=== PATIENT | male | born 1960 | race African-American/Black ===

== ENCOUNTER 2021-01-29 17:52 | Inpatient (IN) | payer OTHER ==
[2021-01-29 18:52] LABS: Absolute Lymphocytes (CBC) 1.9 K/uL (0.7-4.9); Basophils % 0.9 % (0-1.3); Lymphocytes % 33.2 % (15.3-44.8); MPV 8.2 fL (7.6-11.3); RBC Red Blood Cell Count 4.23 M/uL (4.33-5.43)
[2021-01-29 18:55] LABS: Protime INR 1.03
--- NOTE | 2021-01-29 18:58 | ER ---
Nurse's Notes [facility] Name: Weston Saba Age: 60 yrs Sex: Male : 1960 Arrival Date: 01/29/2021 Time: 17:54 Bed 4 Private MD: Diagnosis: Essential (primary) hypertension;Systolic (congestive) heart failure;Edema, unspecified;Type 2 diabetes mellitus with hyperglycemia;Obesity due to excess calories Presentation: 01/29 18:21 Chief complaint: Patient states: "I am swollen up everywhere, last week I was 245lbs ld1 and today I am 260lbs." Pt reports facial swelling, he pressed his leg today and it left an indention. Pt reports having heart failure. Coronavirus screen: At this time, the client does not indicate any symptoms associated with coronavirus-19. Ebola Screen: No symptoms or risks identified at this time. Initial Sepsis Screen: Does the patient meet any 2 criteria? No. Patient's initial sepsis screen is negative. Does the patient have a suspected source of infection? No. Patient's initial sepsis screen is negative. Risk Assessment: Do you want to hurt yourself or someone else? Patient reports no desire to harm self or others. Onset of symptoms was January 29, 2021. 18:21 Method Of Arrival: Ambulatory ld1 18:21 Acuity: DANIELA 3 ld1 20:28 Note 1+ edema noted BLE. Exp wheeze noted. Notified provider. Orders received. as6 Triage Assessment: 18:23 General: Appears in no apparent distress. comfortable, Behavior is calm, cooperative, ld1 appropriate for age. Pain: Denies pain. Neuro: Level of Consciousness is awake, alert, obeys commands, Oriented to person, place, time, situation. Cardiovascular: Capillary refill < 3 seconds Patient's skin is warm and dry. Respiratory: Airway is patent Respiratory effort is even, unlabored, Respiratory pattern is regular, symmetrical. GI: Abdomen is round non-distended. : No signs and/or symptoms were reported regarding the genitourinary system. Derm:. 18:23 Musculoskeletal: Swelling present in right arm, left arm, right leg and left leg. ld1 Historical: - Allergies: 18:23 No Known Allergies; ld1 - Home Meds: 18:23 omeprazole 40 mg Oral cpDR 1 cap once daily [Active]; gabapentin 300 mg oral cap 1 cap ld1 BID [Active]; furosemide 20 mg Oral tab 1 tab once daily [Active]; metformin 500 mg Oral tab 1 tab every morning [Active]; Lipitor 40 mg Oral tab 1 tab once daily [Active]; levothyroxine 50 mcg cap 1 cap once daily [Active]; budesonide 3 mg oral CECX [Active]; albuterol sulfate 2 mg/5 mL Oral syrp [Active]; 20:16 budesonide-formoterol 160-4.5 2 puff BID [Active]; stiolto respimat 2.5 2 puffs nasal as6 daily [Active]; trelegy 200-62.5-25 1 puff daily [Active]; - PMHx: 18:23 Hypertensive disorder; Hypercholesterolemia; Hyperthyroidism; Diabetes mellitus; ld1 Chronic systolic heart failure; - Immunization history:: Adult Immunizations up to date, Client reports receiving the 1st dose of the Covid vaccine. - Social history:: Smoking status: Patient reports the use of cigarette tobacco products, smokes one-half pack cigarettes per day, Patient/guardian denies using alcohol. - Family history:: not pertinent. Screenin:09 Abuse screen: Denies threats or abuse. Nutritional screening: No deficits noted. df1 Tuberculosis screening: No symptoms or risk factors identified. Fall Risk None identified. Assessment: 20:27 General: Appears in no apparent distress. Behavior is calm, cooperative. Pain: Denies as6 pain. Neuro: No deficits noted. Cardiovascular: No deficits noted. Respiratory: Airway is patent Trachea midline Respiratory effort is even, unlabored, Respiratory pattern is regular, symmetrical, Breath sounds with wheezes bilaterally. GI: No deficits noted. : No deficits noted. EENT: No deficits noted. Musculoskeletal: No deficits noted. Vital Signs: 18:21 BP 125 / 85; Pulse 70; Resp 18; Temp 97.9(O); Pulse Ox 97% on R/A; Weight 117.93 kg; ld1 Height 5 ft. 6 in. (167.64 cm); Pain 5/10; 20:20 BP 120 / 77; Pulse 70; Resp 18; Pulse Ox 97% on R/A; Pain 0/10; as6 18:21 Body Mass Index 41.96 (117.93 kg, 167.64 cm) 1 ED Course: 17:54 Patient arrived in ED. as 18:23 Triage completed. ld1 18:23 Arm band placed on right wrist. ld1 18:41 Leonides Huber MD is Attending Physician. teresita 18:42 Initial lab(s) drawn, by ED staff, sent to lab. Inserted saline lock: 20 gauge in left kj1 antecubital area, using aseptic technique. Blood collected. 18:55 XRAY Chest (1 view) In Process Unspecified. EDMS 18:56 Roman Harrison is Hospitalizing Provider. teresita 19:06 Tomeka Saba, MIRA is Primary Nurse. bs2 19:59 COVID-19 SARS RT PCR (Document "Date of Onset" if Symptomatic) Sent. as6 20:03 US Extremity Venous W Compression Adonis In Process Unspecified. EDMS 20:03 Abdomen Exam Limited In Process Unspecified. EDMS 20:13 Basic Metabolic Panel Sent. as6 20:14 CBC with Diff Sent. as6 20:14 LFT's Sent. as6 20:28 No provider procedures requiring assistance completed. as6 21:09 Patient has correct armband on for positive identification. Placed in gown. Bed in low df1 position. Call light in reach. Side rails up X 1. 21:09 Patient admitted, IV remains in place. df1 Administered Medications: 18:51 CANCELLED (Duplicate Order): Lasix (furosemide) 20 mg IVP once; give over 2 minutes teresita 20:13 Drug: Lasix (furosemide) 40 mg Route: IVP; Site: left antecubital; as6 20:35 Drug: Albuterol - atroVENT (ipratropium) (3:1) (2.5 mg - 0.5 mg) 3 ml Route: Nebulizer; as6 Outcome: 18:57 Decision to Hospitalize by Provider. teresita 21:09 Admitted to Tele accompanied by tech. df1 21:09 Condition: stable 21:09 Instructed on the need for admit. 21:20 Patient left the ED. em Signatures: Dispatcher [employer] Leonides Mendez MD MD cha Munoz, Edgar, MIRA RN em Annette Posadas as Danelle Castano kj1 China Sanchez RN RN ld1 Tomeka Saba, MIRA RN bs2 Aracelis Grey df1 [place], [place], RN RN as6 Corrections: (The following items were deleted from the chart) 18:30 18:21 Pulse 70bpm; Resp 18bpm; Pulse Ox 97% RA; Temp 97.9F Oral; 117.93 kg; Height 5 ld1 ft. 6 in.; BMI: 41.9; Pain 5/10; ld1
--- NOTE | 2021-01-29 18:58 | EDPHYS ---
Physician Documentation [facility] Name: Weston Saba Age: 60 yrs Sex: Male : 1960 Arrival Date: 01/29/2021 Time: 17:54 Bed 4 Private MD: Leonides Stokes HPI: 01/29 18:51 This 60 yrs old Black Male presents to ER via Ambulatory with complaints of Edema. teresita 18:51 The patient presents with decreased range of motion, pain, swelling. The complaints teresita affect the right leg and left leg. Context: The problem was sustained at home. Onset: The symptoms/episode began/occurred 3 day(s) ago. Modifying factors: The symptoms are alleviated by nothing. Associated signs and symptoms: The patient has no apparent associated signs or symptoms. The patient has shortness of breath with light activity, that woke him/her from sleep. The patient's shortness of breath is aggravated by supine position, is alleviated by elevating head, application of supplemental oxygen. Historical: - Allergies: 18:23 No Known Allergies; ld1 - Home Meds: 18:23 omeprazole 40 mg Oral cpDR 1 cap once daily [Active]; gabapentin 300 mg oral cap 1 cap ld1 BID [Active]; furosemide 20 mg Oral tab 1 tab once daily [Active]; metformin 500 mg Oral tab 1 tab every morning [Active]; Lipitor 40 mg Oral tab 1 tab once daily [Active]; levothyroxine 50 mcg cap 1 cap once daily [Active]; budesonide 3 mg oral CECX [Active]; albuterol sulfate 2 mg/5 mL Oral syrp [Active]; 20:16 budesonide-formoterol 160-4.5 2 puff BID [Active]; stiolto respimat 2.5 2 puffs nasal as6 daily [Active]; trelegy 200-62.5-25 1 puff daily [Active]; - PMHx: 18:23 Hypertensive disorder; Hypercholesterolemia; Hyperthyroidism; Diabetes mellitus; ld1 Chronic systolic heart failure; - Immunization history:: Adult Immunizations up to date, Client reports receiving the 1st dose of the Covid vaccine. - Social history:: Smoking status: Patient reports the use of cigarette tobacco products, smokes one-half pack cigarettes per day, Patient/guardian denies using alcohol. - Family history:: not pertinent. ROS: 18:51 Constitutional: Negative for fever, chills, and weight loss, Eyes: Negative for injury, teresita pain, redness, and discharge, ENT: Negative for injury, pain, and discharge, Neck: Negative for injury, pain, and swelling, Cardiovascular: Negative for chest pain, palpitations, and edema, Abdomen/GI: Negative for abdominal pain, nausea, vomiting, diarrhea, and constipation, : Negative for injury, bleeding, discharge, and swelling, Skin: Negative for injury, rash, and discoloration, Neuro: Negative for headache, weakness, numbness, tingling, and seizure. 18:51 Neck: 18:51 MS/extremity: Positive for swelling. Exam: 18:53 Constitutional: This is a well developed, well nourished patient who is awake, alert, teresita and in no acute distress. Head/Face: Normocephalic, atraumatic. Eyes: Pupils equal round and reactive to light, extra-ocular motions intact. Lids and lashes normal. Conjunctiva and sclera are non-icteric and not injected. Cornea within normal limits. Periorbital areas with no swelling, redness, or edema. ENT: Nares patent. No nasal discharge, no septal abnormalities noted. Tympanic membranes are normal and external auditory canals are clear. Oropharynx with no redness, swelling, or masses, exudates, or evidence of obstruction, uvula midline. Mucous membranes moist. Chest/axilla: Normal chest wall appearance and motion. Nontender with no deformity. No lesions are appreciated. Respiratory: Lungs have equal breath sounds bilaterally, clear to auscultation and percussion. No rales, rhonchi or wheezes noted. No increased work of breathing, no retractions or nasal flaring. Abdomen/GI: Soft, non-tender, with normal bowel sounds. No distension or tympany. No guarding or rebound. No evidence of tenderness throughout. Back: No spinal tenderness. No costovertebral tenderness. Full range of motion. Male : Normal genitalia with no discharge or lesions. Skin: Warm, dry with normal turgor. Normal color with no rashes, no lesions, and no evidence of cellulitis. Neuro: Awake and alert, GCS 15, oriented to person, place, time, and situation. Cranial nerves II-XII grossly intact. Motor strength 5/5 in all extremities. Sensory grossly intact. Cerebellar exam normal. Normal gait. Psych: Awake, alert, with orientation to person, place and time. Behavior, mood, and affect are within normal limits. 18:53 Neck: External neck: no acute changes, ROM/movement: is normal, no acute changes. 18:53 Chest/axilla: Inspection: normal, no acute changes, Axilla: are normal, no acute changes, Lymph nodes: lymphadenopathy is not appreciated. 18:53 Cardiovascular: Rate: normal, Rhythm: regular, Pulses: Pulses are 4+ in bilateral radial, brachial, femoral, popliteal, posterior tibial and and dorsalis pedis arteries.. Heart sounds: normal, Edema: 2+ edema to level of left midcalf and right midcalf, JVD: is noted bilaterally, to 3 cm. 19:36 ECG was reviewed by the Attending Physician. [facility] Vital Signs: 18:21 BP 125 / 85; Pulse 70; Resp 18; Temp 97.9(O); Pulse Ox 97% on R/A; Weight 117.93 kg; ld1 Height 5 ft. 6 in. (167.64 cm); Pain 5/10; 20:20 BP 120 / 77; Pulse 70; Resp 18; Pulse Ox 97% on R/A; Pain 0/10; as6 18:21 Body Mass Index 41.96 (117.93 kg, 167.64 cm) ld1 MDM: 18:41 Patient medically screened. teresita 18:55 Differential diagnosis: CHF exacerbation, pulmonary edema. Antibiotic administration: teresita Not indicated. The patient's Wells Deep Vein Thrombosis Score was calculated as follows: Total Score: 0-2 Pts- Low Risk. The patient's pulmonary embolism risk score was calculated as follows: Total Score: 0-2 points. This patient was found to be at low risk for a pulmonary embolism by using the Well's assessment criteria. Immunization status: Influenza vaccine:. Data reviewed: vital signs, nurses notes, lab test result(s), EKG, radiologic studies, plain films. Data interpreted: secondary social studies teacher: rate is 70 beats/min, rhythm is regular, Pulse oximetry: on room air is 97 %. Test interpretation: by ED physician or midlevel provider: ECG, plain radiologic studies. 01/29 18: Order name: Basic Metabolic Panel kb 01/29 18:29 Order name: CBC with Diff kb 01/29 18:29 Order name: LFT's kb 01/29 18:29 Order name: Magnesium; Complete Time: 19:18 kb 01/29 18:29 Order name: NT PRO-BNP; Complete Time: 19:18 kb 01/29 18:29 Order name: PT-INR; Complete Time: 19:18 kb 01/29 18:29 Order name: Troponin (emerg Dept Use Only); Complete Time: 19:18 kb 01/29 18:29 Order name: XRAY Chest (1 view); Complete Time: 19:37 kb 01/29 18:30 Order name: Basic Metabolic Panel; Complete Time: 19:18 EDMS 01/29 18:30 Order name: CBC with Automated Diff; Complete Time: 19:18 EDMS 01/29 18:30 Order name: Liver (Hepatic) Function; Complete Time: 19:18 EDMS 01/29 18:56 Order name: US Extremity Venous W Compression Adonis teresita 01/29 19:08 Order name: COVID-19 SARS RT PCR (Document "Date of Onset" if Symptomatic) bs2 01/29 18:29 Order name: EKG; Complete Time: 18:30 kb 01/29 18:29 Order name: Cardiac monitoring; Complete Time: 18:39 kb 01/29 18:29 Order name: EKG - Nurse/Tech; Complete Time: 18:39 kb 01/29 18:29 Order name: IV Saline Lock; Complete Time: 18:51 kb 01/29 18:29 Order name: Labs collected and sent; Complete Time: 18:51 kb 01/29 18:29 Order name: O2 Per Protocol; Complete Time: 18:39 kb 01/29 18:29 Order name: O2 Sat Monitoring; Complete Time: 18:39 kb 01/29 20:01 Order name: Abdomen Exam Limited EDMS EC:36 Rate is 69 beats/min. Rhythm is regular. QRS Buckner is Normal. ID interval is normal. QRS teresita interval is normal. QT interval is normal. No Q waves. T waves are Normal. No ST changes noted. Clinical impression: NSR w/ Non-specific ST/T Changes and No evidence of ischemia. Interpreted by me. Reviewed by me. Administered Medications: 18:51 CANCELLED (Duplicate Order): Lasix (furosemide) 20 mg IVP once; give over 2 minutes teresita 20:13 Drug: Lasix (furosemide) 40 mg Route: IVP; Site: left antecubital; as6 20:35 Drug: Albuterol - atroVENT (ipratropium) (3:1) (2.5 mg - 0.5 mg) 3 ml Route: Nebulizer; as6 Disposition Summary: 01/29/21 18:57 Hospitalization Ordered Hospitalization Status: Observation teresita Provider: Roman Harrison cha Location: Telemetry/MedSurg (observation) teresita Condition: Fair teresita Problem: an acute exacerbation teresita Symptoms: have improved teresita Bed/Room Type: Standard teresita Room Assignment: 206(01/29/21 20:45) cg Diagnosis - Essential (primary) hypertension teresita - Systolic (congestive) heart failure teresita - Edema, unspecified teresita - Type 2 diabetes mellitus with hyperglycemia teresita - Obesity due to excess calories teresita Forms: - Medication Reconciliation Form teresita - SBAR form teresita Signatures: Dispatcher [employer] EDSharmila Magaña FNP-C FNP-Leonides Patten MD MD cha Garcia, Cindy, RN RN China Sanchez RN RN ld1 Addison Schumacher RN RN as6 Corrections: (The following items were deleted from the chart) 18:51 18:43 Lasix (furosemide) 20 mg IVP once; give over 2 minutes ordered. [facility] 20:01 18:57 Rp Exam Complete+US.RAD.BRZ ordered. EDND EDMS 20:45 18:57 [facility]
[2021-01-29 19:11] LABS: ALT/SGPT 152 U/L (12-78); AST/SGOT 275 U/L (15-37); Albumin 3.6 g/dL (3.4-5.0); Alkaline Phosphatase 79 U/L (45-117); BUN Blood Urea Nitrogen 13 mg/dL (7-18); Bicarbonate 28 mmol/L (21-32); Bilirubin Direct < 0.1 mg/dL (0-0.2); Bilirubin Total 0.3 mg/dL (0.2-1.0); Glucose Level 126 mg/dL (74-106); Magnesium 2.3 mg/dL (1.8-2.4); NT PRO-BNP 53 pg/mL (<125); Potassium 3.6 mmol/L (3.5-5.1); Protein, Total 7.6 g/dL (6.4-8.2); Sodium Level 141 mmol/L (136-145); Troponin (Emerg Dept Use Only) 0.02 ng/mL (0.0-0.045)
--- NOTE | 2021-01-29 19:23 | RAD REPORT ---
EXAM DESCRIPTION: RAD - Chest Single View - 01/29/2021 6:55 pm CLINICAL HISTORY: SWELLING Chest pain. COMPARISON: No comparisons FINDINGS: Portable technique limits examination quality. The lungs are grossly clear. The heart is normal in size. No displaced fractures. IMPRESSION: No acute intrathoracic process suspected.
[2021-01-29] MEDS ORDERED: FUROSEMIDE 40 MG/4 ML VIAL ONE (20:00)
--- NOTE | 2021-01-29 20:17 | RAD REPORT ---
EXAM DESCRIPTION: US - Abdomen Exam Limited - 01/29/2021 8:03 pm CLINICAL HISTORY: edema Abdominal pain COMPARISON: No comparisons FINDINGS: Liver and renal limited assessment was requested. Mild diffuse fatty liver is noted. Liver size is mildly prominent. Kidneys are within normal limits w ithout evidence of hydronephrosis.
--- NOTE | 2021-01-29 20:18 | RAD REPORT ---
EXAM DESCRIPTION: US - Extrem Venous W Compress Adonis - 01/29/2021 8:03 pm CLINICAL HISTORY: Pain;Swelling Bilateral leg edema and swelling. COMPARISON: No comparisons TECHNIQUE: Real-time sonographic interrogation of the left and right lower extremity deep venous sys tems was performed. FINDINGS: Normal compressibility, flow augmentation, phasic flow and spontaneous flow is identified in both the left and right lower extremity deep venous systems. IMPRESSION: No sonographic evidence of left or right lower extremity deep venous thrombosis.
[2021-01-29] MEDS ORDERED: IPRATROPIUM BROM 0.5MG/2.5ML ONE (20:31)
[2021-01-29] MEDS ORDERED: ALBUTEROL 2.5 MG/3 ML NEB SOL ONE (20:31)
--- NOTE | 2021-01-29 20:37 | P.HP ---
Certification for Inpatient Patient admitted to: Inpatient With expected LOS: <2 Midnights Patient will require the following post-hospital care: None Practitioner: I am a practitioner with admitting privileges, knowledge of patient current condition, hospital course, and medical plan of care. Services: Services provided to patient in accordance with Admission requirements found in Title 42 Section 412.3 of the Code of Federal Regulations Patient History Date of Service: 01/29/21 Reason for admission: edema History of Present Illness: Mr. Saba is a 60 yo M with CHF, HTN, HLD, hypothyroidism, COPD, prediabetes who presents with two days of increased dyspnea and edema. He says he has gained 20lbs over the past few days and that he has noticed swelling in his face, legs, and abdomen. He also reports back aches and tingling in his legs. He reports wheezing, orthopnea, PND, headaches. He last had these symptoms 7 years ago. AST 275, ALT 152. Abdominal ultrasound showed evidence of fatty liver. Patient currently admitted to [facility] for alcohol use disorder, last drink was 2 weeks ago. He smokes 5 cigarettes daily. - Past Medical/Surgical History Has patient received pneumonia vaccine in the past: No Diabetic: Yes -: HTN -: CHF -: HLD -: hypothyroidism -: COPD -: fatty liver -: right ankle -: right bicep tendon repair - Family History Family History: Reviewed- Non-Contributory - Social History Smoking Status: Current every day smoker Alcohol use: No CD- Drugs: No Caffeine use: No Place of Residence: Home Review of Systems 10-point ROS is otherwise unremarkable General: Unremarkable Eyes: Unremarkable ENT: Unremarkable Respiratory: Shortness of Breath, SOB with Excertion, Wheezing, As per HPI Cardiovascular: Orthopnea, Paroxysmal Noc. Dyspnea, Edema, As per HPI Gastrointestinal: Unremarkable Genitourinary: Unremarkable Musculoskeletal: Back Pain, Leg Pain, As per HPI Integumentary: Unremarkable Neurological: Unremarkable Lymphatics: Unremarkable Physical Examination - Physical Exam General: Alert, In no apparent distress, Obese HEENT: Atraumatic, PERRLA, Mucous membr. moist/pink, EOMI, Sclerae nonicteric Neck: Supple, 2+ carotid pulse no bruit, No LAD, JVD distended Respiratory: Normal air movement, Crackles/rales Cardiovascular: Regular rate/rhythm, Normal S1 S2, Edema Gastrointestinal: Normal bowel sounds, No tenderness, Hepatomegaly Musculoskeletal: No tenderness Integumentary: No rashes Neurological: Normal speech, Normal strength at 5/5 x4 extr, Normal tone, Normal affect Lymphatics: No axilla or inguinal lymphadenopathy - Studies Laboratory Data (last 24 hrs) 01/29/21 18:42: PT 11.8, INR 1.03 01/29/21 18:42: WBC 5.70, Hgb 13.2 L, Hct 39.0 L, Plt Count 298 01/29/21 18:42: Sodium 141, Potassium 3.6, BUN 13, Creatinine 1.21, Glucose 126 H, Magnesium 2.3, Total Bilirubin 0.3, AST 275 H, ALT 152 H, Alkaline Phosphatase 79 Assessment and Plan - Problems (Diagnosis) (1) HTN (hypertension) Current Visit: Yes Status: Chronic Qualifiers: Hypertension type: primary hypertension Qualified Code(s): I10 - Essential (primary) hypertension (2) CHF (congestive heart failure) Current Visit: Yes Status: Acute Qualifiers: Heart failure type: unspecified Heart failure chronicity: acute on chronic Qualified Code(s): I50.9 - Heart failure, unspecified (3) NAFLD (nonalcoholic fatty liver disease) Current Visit: Yes Status: Chronic (4) HLD (hyperlipidemia) Current Visit: Yes Status: Chronic Qualifiers: Hyperlipidemia type: unspecified Qualified Code(s): E78.5 - Hyperlipidemia, unspecified (5) Hypothyroid Current Visit: Yes Status: Chronic Qualifiers: Hypothyroidism type: unspecified Qualified Code(s): E03.9 - Hypothyroidism, unspecified (6) COPD (chronic obstructive pulmonary disease) Current Visit: Yes Status: Chronic Qualifiers: COPD type: unspecified COPD Qualified Code(s): J44.9 - Chronic obstructive pulmonary disease, unspecified (7) Alcohol use disorder, mild, in early remission Current Visit: Yes Status: Chronic - Plan ECHO pending trend troponins continue IV lasix, heart healthy diet, daily weights and fluid restriction A1c pending, sliding scale insulin and accuchecks breathing treatments as needed monitor for signs of alcohol withdrawal, nicotine patch PRN monitor liver function reconcile and continue home medications DVT ppx Discharge Plan: Home Plan to discharge in: 48 Hours - Advance Directives Does patient have a Living Will: No Does patient have a Durable POA for Healthcare: No - Code Status/Comfort Care Code Status Assessed: Yes (full code ) Critical Care: No Time Spent Managing Pts Care (In Minutes): 70
[2021-01-29] MEDS ORDERED: IPRATROPIUM BROM 0.5MG/2.5ML NEB PRN (22:17)
[2021-01-29] MEDS ORDERED: ONDANSETRON 4 MG/2 ML VIAL IV PRN (22:17)
[2021-01-29] MEDS: INSULIN -REGULAR HUMAN 50 UNIT/0.5 ML ML SQ SCH (22:17)
[2021-01-29] MEDS ORDERED: ALBUTEROL 2.5 MG/3 ML NEB SOL NEB PRN (22:17)
[2021-01-29] MEDS: ATORVASTATIN 40 MG TAB PO SCH (22:38)
[2021-01-29] MEDS: GABAPENTIN 300 MG CAP PO SCH (22:38)
[2021-01-29] MEDS: ACETAMINOPHEN 500 MG TAB PO PRN (22:40)
[2021-01-29 22:59] VITALS: BMI 41.9
[2021-01-30 04:30] LABS: Absolute Lymphocytes (CBC) 1.8 K/uL (0.7-4.9); Basophils % 0.5 % (0-1.3); Hematocrit 36.4 % (39.6-49.0); Lymphocytes % 31.9 % (15.3-44.8); MPV 8.3 fL (7.6-11.3); RBC Red Blood Cell Count 3.98 M/uL (4.33-5.43)
[2021-01-30] MEDS: ACETAMINOPHEN 500 MG TAB PO PRN ×2 (04:43→20:36)
[2021-01-30 04:59] LABS: Albumin 3.4 g/dL (3.4-5.0); Bilirubin Total 0.4 mg/dL (0.2-1.0); Magnesium 2.2 mg/dL (1.8-2.4); Phosphorus 5.5 mg/dL (2.5-4.9)
[2021-01-30 05:01] LABS: Thyroid Stimulating Hormone 4.44 uIU/mL (0.360-3.740)
[2021-01-30] MEDS ORDERED: LIDOCAINE VISCOUS 2% SOLN 15 ML UDC PO PRN (05:01)
[2021-01-30] MEDS ORDERED: LIDOCAINE VISCOUS 2% SOLN 15 ML UDC PO ONE (05:08)
[2021-01-30] MEDS ORDERED: POTASSIUM CL SA 10 MEQ TAB PO ONE ×2 (05:08→14:34)
[2021-01-30 05:09] LABS: Urine Appearance CLEAR (Clear); Urine Bilirubin NEGATIVE (Negative); Urine Blood NEGATIVE (Negative); Urine Color YELLOW (Yellow); Urine Glucose NEGATIVE (Negative); Urine Protein NEGATIVE (Negative); Urine Urobilinogen 0.2 mg/dL (0.2-1.0); Urine pH 5.5 (5.0-7.0)
[2021-01-30 05:14] LABS: Urine Microscopic Reflex NO UMIC
[2021-01-30] MEDS: LEVOTHYROXINE SOD 0.05 MG TABLET PO SCH (05:31)
[2021-01-30] MEDS: PANTOPRAZOLE 40MG TABLET PO SCH (05:31)
[2021-01-30] MEDS: INSULIN -REGULAR HUMAN 50 UNIT/0.5 ML ML SQ SCH ×4 (07:30→20:38)
[2021-01-30] MEDS: ENOXAPARIN 40 MG/0.4 ML SQ SCH (08:31)
[2021-01-30] MEDS: FUROSEMIDE 40 MG/4 ML VIAL IV SCH ×2 (08:31→17:31)
[2021-01-30] MEDS: GABAPENTIN 300 MG CAP PO SCH ×2 (08:32→20:37)
[2021-01-30 11:28] LABS: Potassium 3.8 mmol/L (3.5-5.1)
--- NOTE | 2021-01-30 13:12 | EKG ---
Test Date: 2021-01-29 Test Time: 18:38:47 [employer] Assistant: CYNTHIA MEASUREMENT RESULTS: Intervals: Rate: 69 ID: [id number] QRSD: 80 QT: 292 QTc: 312 [place]: P: 28 ID: [id number] QRS: 51 T: 1 INTERPRETIVE STATEMENTS: Sinus rhythm with premature atrial complexes with aberrant conduction Cannot rule out Anterior infarct, age undetermined Abnormal ECG No previous ECG available for comparison Electronically Signed On 01-30-21 13:10:27 CDT by Junaid Sylvester
[2021-01-30] MEDS ORDERED: ALBUTEROL SULFATE 1.25 MG/3 ML IH PRN (13:25)
--- NOTE | 2021-01-30 14:00 | ECHO ---
HEIGHT: 5 ft 6 in WEIGHT: 252 lb 4.8 oz DATE OF STUDY: 01/30/[address]: Vikash Morris 2-DIMENSIONAL: YES M.MODE: YES DOPPLER: YES COLOR FLOW: YES TDS: NO PORTABLE: NO DEFINITY: NO BUBBLE STUDY: NO DIAGNOSIS: EDEMA CARDIAC HISTORY: CATHERIZATION: NO SURGERY: NO PROSTHETIC VALVE: NO PACEMAKER: NO MEASUREMENTS (cm) DIASTOLIC (NORMALS) SYSTOLIC (NORMALS) IVSd 1.2 (0.6-1.2) LA Diam 3.2 (1.9-4.0) LVEF 65% LVIDd 4.5 (3.5-5.7) LVIDs 2.9 (2.0-3.5) %FS 36% LVPWd 1.2 (0.6-1.2) Ao Diam 2.6 (2.0-3.7) 2 DIMENSIONAL ASSESSMENT: RIGHT ATRIUM: NORMAL LEFT ATRIUM: NORMAL RIGHT VENTRICLE: NORMAL LEFT VENTRICLE: NORMAL TRICUSPID VALVE: NORMAL MITRAL VALVE: NORMAL PULMONIC VALVE: NORMAL AORTIC VALVE: NORMAL PERICARDIAL EFFUSION: NONE AORTIC ROOT: NORMAL LEFT VENTRICULAR WALL MOTION: NORMAL DOPPLER/COLOR FLOW: MILD TRICUSPID REGURGITATION. COMMENTS: MILD TRICUSPID REGURGITATION. NORMAL LEFT VENTRICULAR SIZE AND FUNCTION. LEFT VENTRICULAR EJECTION FRACTION 65%. TECHNOLOGIST: [employer]tr[employer] ROME
[2021-01-30] MEDS: NYSTATIN 500,000 UNIT/5 ML UDC PO SCH ×3 (14:06→20:37)
--- NOTE | 2021-01-30 17:20 | P.PN ---
Subjective Date of Service: 01/30/21 Chief Complaint: edema Patient complaining of sore throat. His lower extremity edema have improved. He denies shortness of breath. Physical Examination - Vital Signs Temperature: 97.0 F Blood Pressure: 116/75 Pulse: 58 Respirations: 18 Pulse Ox (%): 98 - Physical Exam General: Alert, In no apparent distress, Oriented x3 HEENT: Mucous membr. moist/pink, Other (White spots noted in the pharygeal area.) Neck: Supple, JVD not distended Respiratory: Clear to auscultation bilaterally, Normal air movement Cardiovascular: No edema, Regular rate/rhythm, Normal S1 S2 Gastrointestinal: Normal bowel sounds, Soft and benign, Non-distended, No tenderness Musculoskeletal: No swelling, No tenderness Integumentary: No rashes, No erythema Neurological: Normal speech, Normal strength at 5/5 x4 extr, Cranial nerves 3-12 intact - Studies Laboratory Data (last 24 hrs) 01/29/21 18:42: PT 11.8, INR 1.03 01/29/21 18:42: WBC 5.70, Hgb 13.2 L, Hct 39.0 L, Plt Count 298 01/29/21 18:42: Sodium 141, Potassium 3.6, BUN 13, Creatinine 1.21, Glucose 126 H, Magnesium 2.3, Total Bilirubin 0.3, AST 275 H, ALT 152 H, Alkaline Phosphatase 79 Assessment And Plan - Current Problems (Diagnosis) (1) Acute on chronic diastolic heart failure Current Visit: Yes Status: Acute (2) COPD (chronic obstructive pulmonary disease) Current Visit: Yes Status: Chronic Qualifiers: COPD type: unspecified COPD Qualified Code(s): J44.9 - Chronic obstructive pulmonary disease, unspecified (3) HTN (hypertension) Current Visit: Yes Status: Chronic Qualifiers: Hypertension type: primary hypertension Qualified Code(s): I10 - Essential (primary) hypertension (4) Hypothyroid Current Visit: Yes Status: Chronic Qualifiers: Hypothyroidism type: unspecified Qualified Code(s): E03.9 - Hypothyroidism, unspecified (5) NAFLD (nonalcoholic fatty liver disease) Current Visit: Yes Status: Chronic (6) Oral candidiasis Current Visit: Yes Status: Acute - Plan Continue IV Lasix. Elevated troponin secondary to fatty liver. I suspect white spot in the pharyngeal area is secondary to oral candidiasis. Started nystatin swish and swallow. Cepacol lozenges p.r.n. for sore throat. Daily weight, intake and output charting. Echocardiogram reviewed and reporting normal EF. Increase activity as tolerated. Continue bronchodilators for COPD. TSH is slightly above the upper limit. Continue current dose Synthroid.
[2021-01-30] MEDS: CEPACOL LOZENGES PO PRN (17:31)
[2021-01-30] MEDS: ATORVASTATIN 40 MG TAB PO SCH (20:37)
[2021-01-30] MEDS ORDERED: MELATONIN 5 MG TABLET PO PRN (20:56)
[2021-01-30] MEDS ORDERED: GABAPENTIN 300 MG CAP PO SCH (21:00)
[2021-01-31 00:39] VITALS: O2SAT 99
[2021-01-31] MEDS: CEPACOL LOZENGES PO PRN (03:34)
[2021-01-31 04:05] LABS: Absolute Lymphocytes (CBC) 1.7 K/uL (0.7-4.9); Basophils % 0.5 % (0-1.3); Hematocrit 40.1 % (39.6-49.0); Lymphocytes % 33.7 % (15.3-44.8); MPV 8.4 fL (7.6-11.3); RBC Red Blood Cell Count 4.37 M/uL (4.33-5.43)
[2021-01-31 04:18] LABS: Potassium 3.5 mmol/L (3.5-5.1)
[2021-01-31] MEDS: PANTOPRAZOLE 40MG TABLET PO SCH (05:58)
[2021-01-31] MEDS: LEVOTHYROXINE SOD 0.05 MG TABLET PO SCH (05:59)
[2021-01-31] MEDS: INSULIN -REGULAR HUMAN 50 UNIT/0.5 ML ML SQ SCH ×2 (07:30→11:30)
[2021-01-31] MEDS: GABAPENTIN 300 MG CAP PO SCH (08:20)
[2021-01-31] MEDS: FUROSEMIDE 40 MG/4 ML VIAL IV SCH (08:20)
[2021-01-31] MEDS: ENOXAPARIN 40 MG/0.4 ML SQ SCH (08:21)
[2021-01-31] MEDS ORDERED: HOME MED 1 EA UNK (Levothyroxine Sodium [Levothyroxine] 50 MCG Capsule) PO SCH (09:00)
[2021-01-31] MEDS ORDERED: Fluticasone/Umeclidin/Vilanter [Trelegy Ellipta 200-62.5-25] Blst.W.Dev PO SCH (09:00)
[2021-01-31] MEDS ORDERED: HOME MED 1 EA UNK (Omeprazole [Prilosec] 40 MG Capsule.Dr) PO SCH (09:00)
[2021-01-31] MEDS ORDERED: TIOTROPIUM BR PO SCH (09:00)
[2021-01-31] MEDS ORDERED: ATORVASTATIN 40 MG TAB PO SCH (09:00)
[2021-01-31] MEDS ORDERED: POTASSIUM CL SA 10 MEQ TAB PO ONE (09:00)
[2021-01-31] MEDS ORDERED: [UNRECOGNIZED DRUG - OTHER] PO SCH (09:00)
[2021-01-31] MEDS: NYSTATIN 500,000 UNIT/5 ML UDC PO SCH (09:48)
--- NOTE | 2021-01-31 10:58 | P.DS ---
Admission Date: 01/29/21 Discharge Date: 01/31/21 Disposition: ROUTINE DISCHARGE Discharge Condition: FAIR Reason for Admission: edema - Problems (1) Acute on chronic diastolic heart failure Current Visit: Yes Status: Acute (2) COPD (chronic obstructive pulmonary disease) Current Visit: Yes Status: Chronic Qualifiers: COPD type: unspecified COPD Qualified Code(s): J44.9 - Chronic obstructive pulmonary disease, unspecified (3) HTN (hypertension) Current Visit: Yes Status: Chronic Qualifiers: Hypertension type: primary hypertension Qualified Code(s): I10 - Essential (primary) hypertension (4) Hypothyroid Current Visit: Yes Status: Chronic Qualifiers: Hypothyroidism type: unspecified Qualified Code(s): E03.9 - Hypothyroidism, unspecified (5) NAFLD (nonalcoholic fatty liver disease) Current Visit: Yes Status: Chronic (6) Oral candidiasis Current Visit: Yes Status: Acute Brief History of Present Illness: 60 yo M with CHF, HTN, HLD, hypothyroidism, COPD, prediabetes presented with two days of increased dyspnea and edema. He stated he had gained 20lbs over a few days and that he noticed swelling in his face, legs, and abdomen. He reported wheezing, orthopnea, PND, headaches. He last had these symptoms 7 years ago. AST 275, ALT 152. Abdominal ultrasound showed evidence of fatty liver. Patient is on behavioral treatment center for alcohol use disorder, last drink was 2 weeks ago. Patient admitted for further management. Hospital Course: Patient admitted to the medical floor and treated for acute CHF with IV lasix. Echocardiogram done reported normal EF. No chest pain. His leg edema resolved. His shortness of breath also resolved with treatment. COPD was stable. Patient was complaining of sore throat. Examination revealed white spots suspected to be oral candidiasis. Patient started on nystatin oral swish and swallow. He has improved with treatment and deemed stable for discharge. No changes made in his home medications. Vital Signs/Physical Exam: Temp Pulse Resp BP Pulse Ox 97.6 F 62 18 119/66 99 01/31/21 08:00 01/31/21 08:00 01/31/21 08:00 01/31/21 08:00 01/31/21 08:00 General: Alert, In no apparent distress, Oriented x3 HEENT: Mucous membr. moist/pink Neck: JVD not distended Respiratory: Clear to auscultation bilaterally, Normal air movement Cardiovascular: No edema, Regular rate/rhythm, Normal S1 S2 Gastrointestinal: Normal bowel sounds, Soft and benign, Non-distended, No tenderness Musculoskeletal: No swelling Integumentary: No rashes, No erythema Neurological: Normal strength at 5/5 x4 extr, Cranial nerves 3-12 intact Laboratory Data at Discharge: WBC 5.10 K/uL (4.3-10.9) 01/31/21 03:31 Hgb 13.4 g/dL (13.6-17.9) L 01/31/21 03:31 Hct 40.1 % (39.6-49.0) 01/31/21 03:31 Plt Count 288 K/uL (152-406) 01/31/21 03:31 PT 11.8 SECONDS (9.5-12.5) 01/29/21 18:42 INR 1.03 01/29/21 18:42 Sodium 140 mmol/L (136-145) 01/31/21 03:31 Potassium 3.5 mmol/L (3.5-5.1) 01/31/21 03:31 BUN 14 mg/dL (7-18) 01/31/21 03:31 Creatinine 1.25 mg/dL (0.55-1.3) 01/31/21 03:31 Glucose 108 mg/dL (74-106) H 01/31/21 03:31 Phosphorus 5.5 mg/dL (2.5-4.9) H 01/30/21 03:48 Magnesium 2.2 mg/dL (1.8-2.4) 01/30/21 03:48 Total Bilirubin 0.4 mg/dL (0.2-1.0) 01/30/21 03:48 AST 203 U/L (15-37) H 01/30/21 03:48 ALT 135 U/L (12-78) H 01/30/21 03:48 Alkaline Phosphatase 71 U/L (45-117) 01/30/21 03:48 Troponin I < 0.02 ng/mL (0.0-0.045) 01/30/21 03:48 Triglycerides 119 mg/dL (<150) 01/30/21 03:48 Cholesterol 133 mg/dL (<200) 01/30/21 03:48 HDL Cholesterol 55 mg/dL (40-60) 01/30/21 03:48 Cholesterol/HDL Ratio 2.42 01/30/21 03:48 Home Medications: Albuterol Sulfate 1.25 mg IH Q4HR PRN 01/29/21 Albuterol Sulfate [Proair Hfa] 90 mcg IH QID PRN 01/29/21 Atorvastatin Calcium [Lipitor] 40 mg PO DAILY 01/29/21 Fluticasone/Umeclidin/Vilanter [Trelegy Ellipta 200-62.5-25] 1 puff PO DAILY 01/29/21 Furosemide [Lasix] 20 mg PO DAILY 01/29/21 Gabapentin 300 mg PO BID 01/29/21 Levothyroxine Sodium [Levothyroxine] 50 mcg PO DAILY 01/29/21 Metformin HCl 500 mg PO DAILY 01/29/21 Omeprazole [Prilosec] 40 mg PO DAILY 01/29/21 Tiotropium Br/Olodaterol HCl [Stiolto Respimat Inhal Leisenring] 2 puff PO DAILY 01/29/21 Benzocaine/Menthol [Cepacol Sore Throat Lozenge] 1 each MM Q6H PRN #30 lozenge 01/30/21 Nystatin 10 ml PO Q6H #480 ml 01/30/21 Pantoprazole [Protonix Tab*] 40 mg PO DAILYAC #30 tab 01/30/21 New Medications: Benzocaine/Menthol [Cepacol Sore Throat Lozenge] 1 each MM Q6H PRN #30 lozenge PRN Reason: Sore Throat Nystatin 10 ml PO Q6H #480 ml Pantoprazole [Protonix Tab*] 40 mg PO DAILYAC #30 tab Diet: AHA Activity: Ad héctor Followup: JOSHUA LEWIS [Primary Care Provider] - 1-2 Weeks Time spent managing pt's care (in minutes): 36
[2021-01-31 12:33] VITALS: BP 119/77; TEMP 97
--- OUTSIDE RECORDS SUMMARY | 2021-02-09 08:27 | XMS REPORT | Continuity of Care Document ---
:[address] [facility] t Address [address] [place] [address] Care Team Providers Name Role Phone CHEYANNE Primary Care Physician Unavailable CHEYANNE Attending Clinician Unavailable Olive JONES Attending Clinician Unavailable JESSA VASQUEZ Attending Clinician Unavailable Yobani MATIAS Attending Clinician Unavailable Ricardo JIMENEZ Attending Clinician Unavailable Barbara CORNELIUS Attending Clinician MICHELINE Attending Clinician Unavailable ANNIE LIEBERMAN Attending Clinician Unavailable Ernie PALENCIA Attending Clinician Unavailable Payers Payer Name Policy Type Policy Number Effective Date Expiration Date S nils MEDICARE A B [id number] 2019 00:00:00 [facility] [id number] 2020 PLAN 00:00:00 MEDICAID [facility] [id number] 2020 00:00:00 MEDICARE PART A & B [id number] 2019 00:00:00 TP13 SSI RECIPIENT [id number] 2019 00:00:00 [employer] [id number] 2019 2020 EXCHANGE 00:00:00 00:00:00 GENERIC COMMERCIAL [id number] 2018 2018 00:00:00 00:00:00 Problems Condition Condition Condition Status Onset Resolution Last Treating Co mments Source Name Details Category Date Date Treatment Clinician Date Closed Closed Disease Active 2017-03 [facility] fracture fracture 0-25 [facility] of distal of distal 00:00: of end of end of Medicin right 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 Orchalgia Orchalgia Disease Active [address] 00:00: of 00 Medicin e Flank pain Flank pain Disease Active [facility] [address] 00:00: of 00 Medicin e Allergies, Adverse Reactions, Alerts Allergy Allergy Status Severity Reaction(s) Onset Inactive Treating Comm ents Source Name Type Date Date Clinician NO KNOWN Allergy Active [facility] Social History Social Habit Start Date Stop Date Quantity Comments Source Exposure to Not sure [facility] e SARS-CoV-2 (event) of Med icine History [facility] Cigarettes smoked 2020-02-02 2020-02-02 [facility] current (pack per 00:00:00 00:00:00 of [facility] [employer] ) - Reported Cigarette 2020-02-02 2020-02-02 [facility] pack-years 00:00:00 00:00:00 of Medicine Alcohol intake 2020-02-02 2020-02-02 Current drinker [facility] 00:00:00 00:00:00 of alcohol of [facility] (finding) Tobacco use and 2020-02-02 2020-02-02 Never used [facility] llege exposure 00:00:00 00:00:00 of Medicine History [facility] 2019-09-19 2019-09-19 5 [facility] Alcohol Frequency 00:00:00 00:00:00 of Medi cine History [facility] 2019-09-19 2019-09-19 1 [facility] Alcohol Std Drinks 00:00:00 00:00:00 of Med icine Smoking Status Start Date Stop Date Source Current every day smoker 2020-02-02 00:00:00 [facility] Medications Ordered Filled Start Stop Current Ordering Indication Dosage Frequency Signature Comments Components Source Medication Medication Date Date Medication? Clinician (SIG) Name Name Tiotropium 2019-03 Yes [id number] 2{puff} Inhale 2 [facility] [place] 1-05 Puffs by [facility] daterol 00:00: nose of (STIOLTO 00 daily. Medicin RESPIMAT) e 2.5-2.5 MCG/ACT AERS Tiotropium 2020-0 Yes [id number] 2 [facility] [place] 6-19 inhalation Colleg e Monohydrate 00:00: s daily of (SPIRIVA 00 for Medicin RESPIMAT) treatment e 2.5 MCG/ACT of COPD AERS Tiotropium 0 2020- No [id number] 2 [facility] [place] 6-19 11-05 inhalation Colle ge Monohydrate 00:00: 00:00 s daily of (SPIRIVA 00 :00 for Medicin RESPIMAT) treatment e 2.5 MCG/ACT of COPD AERS quetiapine 2019-0 Yes 600mg Take 600 [facility] (SEROQUEL) 6-11 mg by College 300 MG 00:00: mouth at of tablet 00 bedtime. Medicin e tramadol 2019-0 Yes 50mg Take 50 mg [facility] (ULTRAM) 50 6-05 by mouth. Col lege MG tablet 00:00: of 00 Medicin e tramadol 2019-0 Yes 50mg Take 50 mg [facility] (ULTRAM) 50 6-05 by mouth. Col lege MG tablet 00:00: of 00 Medicin e omeprazole 2019-0 2020- No 40mg Take 40 mg [facility] (PRILOSEC) 6-05 06-06 by mouth. Col lege 40 MG 00:00: 04:59 of capsule 00 :00 Medicin e omeprazole 2019-0 2020- No 40mg Take 40 mg [facility] (PRILOSEC) 05 06-06 by mouth. Col lege 40 MG 00:00: 04:59 of capsule 00 :00 Medicin e Budesonide- 2019-0 Yes 2{puff} 2 Puffs by [facility] Formoterol 5-15 Inhalation Col [facility]ge Fumarate 00:00: route. of 160-4.5 00 Medicin MCG/ACT e AERO Budesonide- 2019-0 2020- No 2{puff} 2 Puffs by [facility] Formoterol 5-15 11-05 Inhalation Co llege Fumarate 00:00: 00:00 route. of 160-4.5 00 :00 Medicin MCG/ACT e AERO losartan 2019-0 Yes 25mg Take 25 mg [facility] (COZAAR) 25 4-24 by mouth. Col lege MG tablet 00:00: of 00 Medicin e losartan 2019-0 Yes 25mg Take 25 mg [facility] (COZAAR) 25 4-24 by mouth. Col lege MG tablet 00:00: of 00 Medicin e metformin 2020-0 Yes 500mg Take 500 [facility] (GLUCOPHAGE 4-01 mg by [facility] ) 500 MG 00:00: mouth. of tablet 00 Medicin e levothyroxi 2020-0 Yes 50ug Take 50 [facility] ne 4-01 mcg by [facility] (SYNTHROID) 00:00: mouth. of 50 MCG 00 Medicin tablet e methylPREDN 2019-0 Yes follow [facility] ISolone 4 06-28 package College MG TBPK 00:00: directions of 00 . Medicin e metformin 2020-0 Yes 500mg Take 500 [facility] (GLUCOPHAGE 4-01 mg by [facility] ) 500 MG 00:00: mouth. of tablet 00 Medicin e levothyroxi 2020-0 Yes 50ug Take 50 [facility] ne 4-01 mcg by [facility] (SYNTHROID) 00:00: mouth. of 50 MCG 00 Medicin tablet e albuterol 2019-0 2020- No 1.25mg 1.25 mg by [facility] (ACCUNEB) 06-28 Inhalation Col lege 1.25 MG/3ML 00:00: 04:59 route. of nebulizer 00 :00 Medicin solution e budesonide 2019-0 2020- No .5mg 0.5 mg by [facility] [place] (PULMICORT) 06-28 Inhalation C ollege 0.5 MG/2ML 00:00: 04:59 route. of nebulizer 00 :00 Medicin suspension e albuterol 2019-0 2020- No 1.25mg 1.25 mg by [facility] (ACCUNEB) 06-28 Inhalation Col lege 1.25 MG/3ML 00:00: 04:59 route. of nebulizer 00 :00 Medicin solution e budesonide 2019-0 2020- No .5mg 0.5 mg by [facility] [place] (PULMICORT) 06-28 Inhalation C ollege 0.5 MG/2ML 00:00: 00:00 route. of nebulizer 00 :00 Medicin suspension e methylPREDN 2020-0 2020- No follow [facility] ISolone 4 06-28 package Colleg e MG TBPK 00:00: 00:00 directions of 00 :00 . Medicin e furosemide 2019-0 Yes 20mg Take 20 mg [facility] (LASIX) 20 4-29 by mouth. [facility] MG tablet 00:00: of 00 Medicin e furosemide 2019-0 Yes 20mg Take 20 mg [facility] (LASIX) 20 4-29 by mouth. [facility] MG tablet 00:00: of 00 Medicin e ipratropium 2019-0 Yes 3mL 3 mL by [facility] -albuterol 4-02 Inhalation [facility] (DUO-NEB) 00:00: route. of 0.5-2.5 (3) 00 Medicin MG/3ML e ipratropium 2019-0 Yes 3mL 3 mL by [facility] -albuterol 4-02 Inhalation [facility] (DUO-NEB) 00:00: route. of 0.5-2.5 (3) 00 Medicin MG/3ML e sulfamethox 2018-0 Yes 1{tbl} Take 1 Tab [facility] azole-trime 8-14 by mouth [facility] thoprim 00:00: two times of (BACTRIM 00 daily. Medicin DS) 800-160 e MG per tablet sulfamethox 2018-0 2020- No 1{tbl} Take 1 Tab [facility] azole-trime 8-14 11-05 by mouth [facility] thoprim 00:00: 00:00 two times of (BACTRIM 00 :00 daily. Medicin DS) 800-160 e MG per tablet atorvastati 2018-0 Yes 40mg Take 40 mg [facility] n (LIPITOR) 4-02 by mouth. Col lege 40 MG 00:00: of tablet 00 Medicin e atorvastati 2018-0 Yes 40mg Take 40 mg [facility] n (LIPITOR) 4-02 by mouth. Col lege 40 MG 00:00: of tablet 00 Medicin e albuterol 2017- Yes 2{puff} 2 Puffs by [facility] 108 (90 0-09 Inhalation Colleg e base) 00:00: route. of mcg/act 00 Medicin inhaler e albuterol 2016- Yes 2{puff} 2 Puffs by [facility] 108 (90 0-09 Inhalation Colleg e base) 00:00: route. of mcg/act 00 Medicin inhaler e divalproex 2017-0 Yes 1000mg Take 1,000 [facility] (DEPAKOTE) 7-15 mg by [facility] 500 MG EC 00:00: mouth. of tablet 00 Medicin e divalproex Yes 1000mg Take 1,000 [facility] (DEPAKOTE) 7-15 mg by [facility] 500 MG EC 00:00: mouth. of tablet 00 Medicin e Calcium-D Yes Take by [facility] or (PX 2-05 mouth. [facility] CALCIUM&D) 00:00: of 600-400 00 Medicin MG-UNIT e TABS Calcium-D Yes Take by [facility] or (PX 2-05 mouth. [facility] CALCIUM&D) 00:00: of 600-400 00 Medicin MG-UNIT e TABS Immunizations Ordered Immunization Filled Immunization Date Status Commen ts Source Name Name Pneumococcal 2020-02-02 Completed [facility]le [facility] Polysaccharide 00:00:00 of Medicin e Vital Signs Vital Name Observation Time Observation Value Comments Source HEIGHT 2021-02-08 09:42:00 160 cm WEIGHT 2021-02-08 09:42:00 113.399 kg HEIGHT 2020-11-07 12:12:00 160 cm WEIGHT 2020-11-07 12:12:00 111.131 kg HEIGHT 2020-09-18 11:29:00 160 cm WEIGHT 2020-09-18 11:29:00 111.131 kg HEIGHT 2020-08-24 11:34:00 160 cm WEIGHT 2020-08-24 11:34:00 111.131 kg HEIGHT 2020-07-27 13:02:00 160 cm WEIGHT 2020-07-27 13:02:00 110.224 kg HEIGHT 2020-06-25 15:10:00 160 cm WEIGHT 2020-06-25 15:10:00 112.038 kg HEIGHT 2020-02-08 13:09:00 160 cm WEIGHT 2020-02-08 13:09:00 115.667 kg Systolic blood 2020-02-02 20:17:00 131 mm[Hg] [facility] pressure Medicine Diastolic blood 2020-02-02 20:17:00 87 mm[Hg] [facility] of pressure Medicine Heart rate 2020-02-02 20:17:00 63 /min [facility] Respiratory rate 2020-02-02 20:17:00 16 /min [facility] Body height 2020-02-02 20:17:00 165.1 cm [facility] of Medicine Body weight 2020-02-02 20:17:00 120.203 kg [facility] BMI 2020-02-02 20:17:00 44.10 kg/m2 [facility] HEIGHT 2019-12-30 00:00:00 160 cm WEIGHT 2019-12-30 00:00:00 117.482 kg HEIGHT 2019-11-18 00:00:00 160 cm WEIGHT 2019-11-18 00:00:00 115.577 kg HEIGHT 2019-11-10 00:00:00 160 cm WEIGHT 2019-11-10 00:00:00 112.946 kg HEIGHT 2019-10-20 00:00:00 160 cm WEIGHT 2019-10-20 00:00:00 113.231 kg HEIGHT 2019-10-13 00:00:00 160 cm WEIGHT 2019-10-13 00:00:00 114.579 kg Systolic blood 2019-09-16 16:55:00 138 mm[Hg] [facility] of pressure Medicine Diastolic blood 2019-09-16 16:55:00 96 mm[Hg] [facility] Medicine Heart rate 2019-09-16 16:55:00 72 /min [facility] Body temperature 2019-09-16 16:55:00 36.72 [facility] Respiratory rate 2019-09-16 16:55:00 16 /min [facility] Body height 2019-09-16 16:55:00 [facility].1 [facility] 2019-09-16 16:55:00 112.038 [facility] BMI 2019-09-16 16:55:00 41.10 kg/m2 [facility] HEIGHT 2019-09-02 00:00:00 160 cm WEIGHT 2019-09-02 00:00:00 108.591 kg Procedures This patient has no known procedures. Plan of Care Planned Activity Planned Date Details Comments Source Future Scheduled COLON CANCER [facility] ege Test SCREENING: COLONOSCOPY of Me roman [code = COLON CANCER SCREENING: COLONOSCOPY] Future Scheduled TETANUS SHOT (ADULT) [facility] Test [code = TETANUS SHOT of Medi cine (ADULT)] Future Scheduled BMI FOLLOW UP PLAN [employer] Test [code = BMI FOLLOW UP of Med icine PLAN] Future Scheduled HEPATITIS C SCREENING [employer] Test [code = HEPATITIS C of Medic ine SCREENING] Future Scheduled HIV SCREENING [code = [employer] Test HIV SCREENING] of Medicine Future Scheduled FLU VACCINE > 6 MONTHS [employer] Test [code = FLU VACCINE > of Med icine 6 MONTHS] Future Scheduled COLON CANCER [facility] ege Test SCREENING: COLONOSCOPY of Me dicine [code = COLON CANCER SCREENING: COLONOSCOPY] Future Scheduled BMI FOLLOW UP PLAN [employer] Test [code = BMI FOLLOW UP of Med icine PLAN] Future Scheduled HEPATITIS C SCREENING [employer] Test [code = HEPATITIS C of Medic ine SCREENING] Future Scheduled HIV SCREENING [code = [employer] Test HIV SCREENING] of Medicine Future Scheduled ZOSTER VACCINE (1 of [facility] Test 2) [code = ZOSTER of Medicin e VACCINE (1 of 2)] Future Scheduled FLU VACCINE > 6 MONTHS [employer] Test [code = FLU VACCINE > of Med icine 6 MONTHS] Future Scheduled TETANUS SHOT (ADULT) [facility] College Test [code = TETANUS SHOT of Medi cine (ADULT)] Future Scheduled DIAGNOSTIC SLEEP STUDY 1 Occurrences [facility] Test [code = [id number]] starting of Medici ne 09/16/2019 until 09/15/2020 Future Scheduled COMPLETE PFT WITH 1 Occurrences [facility] Test BRONCHODILATOR [code = starting of Me dicine 53315] 09/16/2019 until 09/15/2020 Future Scheduled NOVEL 2019 1 Occurrences [facility] Col lege Test CORONAVIRUS(COVID-19), starting of Me dicine CRUZ [code = U0004] 09/16/2019 until 03/17/2020 Encounters Start End Encounter Admission Attending Care Care Encounter Source Date/Time Date/Time Type Type Clinicians Facility Department ID 2021-02-08 2021-02-08 Outpatient CHEYANNE [facility] [id number] 09:28:41 10:39:58 [facility] 2020-12-31 2020-12-31 Outpatient CHEYANNE [facility] [id number] 00:00:00 00:00:00 [facility] 2020-12-27 2020-12-27 Outpatient CHEYANNE [facility] [id number] 00:00:00 00:00:00 [facility] 2020-12-26 2020-12-26 Outpatient CHEYANNE, [facility] [id number] 00:00:00 00:00:00 [facility] 2020-11-07 2020-11-07 Outpatient CHEYANNE, [facility] [id number] 00:00:00 00:00:00 [facility] 2020-10-30 2020-10-30 Outpatient JONES, [facility] [id number] [place] 09:49:50 09:53:38 [facility] 2020-10-30 2020-10-30 Outpatient JONES, [facility] [id number] [place] 00:00:00 00:00:00 [facility] 2020-10-26 2020-10-26 Outpatient JONES, [facility] [id number] [place] 13:54:57 14:45:56 [facility] 2020-10-10 2020-10-10 Outpatient [facility] [id number] [place] 00:00:00 00:00:[address] 2020-09-28 2020-09-28 Outpatient [facility] [id number] 00:00:00 00:00:00 [facility] 2020-09-26 2020-09-26 Outpatient CHEYANNE, [facility] [id number] 00:00:00 00:00:00 [facility] 2020-09-18 2020-09-18 Outpatient CHEYANNE, [facility] [id number] 00:00:00 00:00:00 [facility] 2020-08-31 2020-08-31 Outpatient [facility] [id number] 00:00:00 00:00:00 [facility] 2020-08-24 2020-08-24 Outpatient CHEYANNE, [facility] [id number] 00:00:00 00:00:00 [facility] 2020-08-24 2020-08-24 Outpatient [facility] [id number] 00:00:00 00:00:00 [facility] 2020-07-27 2020-07-27 Outpatient CHRISTINA, [facility] [id number] 00:00:00 00:00:00 [facility] 2020-07-27 2020-07-27 Outpatient [facility] [id number] 00:00:00 00:00:00 [facility] 2020-07-19 2020-07-19 Outpatient YULIA MATIAS [facility] [id number] [place] 00:00:00 00:00:00 Health 2020-06-25 2020-06-25 Outpatient CHEYANNE, [facility] [id number] 00:00:00 00:00:00 [facility] 2020-05-15 2020-05-15 Outpatient CHEYANNE, [facility] [id number] 00:00:00 00:00:00 [facility] 2020-05-10 2020-05-10 Outpatient CHEYANNE, [facility] [id number] 00:00:00 00:00:00 [facility] 2020-02-21 2020-02-21 Outpatient MARCE JAVED [facility] [id number] SLE 00:00:00 00:00:00 ROXANA 2020-02-20 2020-02-20 [facility] [id number] [facility] 00:00:00 00:00:00 2020-02-08 2020-02-08 Outpatient CHEYANNE, [facility] [id number] 00:00:00 00:00:00 [facility] 2020-02-02 2020-02-02 Office MICHELLE Jimenez [id number] [facility] 14:13:09 16:44:45 Visit Roxana AMBULATOR [id number] College Y [id number] [facility] tegan [facility] 2019-12-30 2019-12-30 Outpatient CHEYANNE, [facility] [id number] 00:00:00 00:00:00 [facility] 2019-12-29 2019-12-29 Outpatient CHEYANNE, [facility] [id number] 00:00:00 00:00:00 [facility] 2019-11-18 2019-11-18 Outpatient CHEYANNE, [facility] [id number] 00:00:00 00:00:00 [facility] 2019-11-16 2019-11-16 Outpatient EL [facility] [id number] [facility] 00:00:00 00:00:00 2019-11-16 2019-11-16 Outpatient EL [facility] [id number] [facility] 00:00:00 00:00:00 2019-11-14 2019-11-14 Outpatient CHEYANNE, [facility] [id number] [facility] 00:00:00 00:00:00 [facility] 2019-11-14 2019-11-14 Outpatient EL CHEYANNE, [facility] [id number] [facility] 00:00:00 00:00:00 [facility] 2019-11-10 2019-11-10 Outpatient CHEYANNE, [facility] [id number] 00:00:00 00:00:00 [facility] 2019-10-20 2019-10-20 Outpatient CHEYANNE, [facility] [id number] 00:00:00 00:00:00 [facility] 2019-10-17 2019-10-17 Outpatient EL MICHELINE, [facility] [id number] [facility] 00:00:00 00:00:00 [facility] 2019-10-13 2019-10-13 Outpatient LUISANA, [facility] [id number] 00:00:00 00:00:00 [facility] 2019-10-13 2019-10-13 Outpatient MICHELINE, [facility] [id number] 00:00:00 00:00:00 [facility] 2019-09-16 2019-09-16 Office MICHELLE Jimenez [id number] [facility] 11:52:20 12:58:15 Visit Roxana AMBULATOR [id number] College Y [id number] Medi tegan 380 e 2019-09-08 2019-09-08 Outpatient [facility] [id number] 00:00:00 00:00:00 [facility] 2019-09-06 2019-09-06 Outpatient [facility] [id number] 00:00:00 00:00:00 [facility] 2019-09-05 2019-09-05 Outpatient [facility] [id number] 00:00:00 00:00:00 [facility] 2019-09-02 2019-09-02 Outpatient CHEYANNE [facility] [id number] 00:00:00 00:00:00 NALI [facility] 2019-08-02 2019-08-02 Outpatient [facility] [id number] 11:32:03 11:32:03 [id number] [facility] 2019-08-01 2019-08-01 Outpatient [facility] [id number] 00:00:00 00:00:00 [id number] [facility] 2019-07-27 2019-07-27 Outpatient [facility] [id number] 00:00:00 00:00:00 [id number] [facility] 2019-07-22 2019-07-22 Outpatient [facility] [id number] [place] 00:00:00 00:00:00 [facility] 2019-06-30 2019-06-30 Outpatient [facility] [id number] [place] 00:00:00 00:00:00 [facility] 2019-06-29 2019-06-29 Outpatient [facility] [id number] 00:00:00 00:00:00 [id number] [facility] 2019-06-10 2019-06-10 Outpatient [facility] [id number] 00:00:00 00:00:00 [id number] [facility] 2018-11-01 2018-11-01 Outpatient [facility] [id number] [place] 00:00:00 00:00:00 [facility] 2018-09-16 2018-09-16 Outpatient [facility] [id number] [place] 00:00:00 00:00:00 [facility] 2018-09-14 2018-09-14 Outpatient [facility] [id number] [place] 00:00:00 00:00:00 [facility] 2018-06-22 2018-06-22 Outpatient [facility] [id number] [place] 00:00:00 00:00:00 [facility] 2018-06-21 2018-06-21 Outpatient [facility] [id number] [place] 00:00:00 00:00:00 [facility] 2018-06-17 2018-06-17 Outpatient [facility] [id number] [place] 15:27:27 15:27:27 [facility] 2018-03-18 2018-03-18 Outpatient [facility] [id number] [place] 00:00:00 00:00:00 [facility] 2018-02-26 2018-02-26 Outpatient [facility] [id number] [place] 00:00:00 00:00:00 [facility] 2018-01-13 2018-01-13 Outpatient [facility] [id number] [place] 00:00:00 00:00:00 [facility] 2018-01-13 2018-01-13 Outpatient [facility] [id number] [place] 00:00:00 00:00:00 [facility] 2018-01-12 2018-01-12 Outpatient [facility] [id number] [place] 16:06:21 16:06:21 [facility] 2017-12-24 2017-12-24 Outpatient [facility] [id number] [place] 11:27:12 11:27:12 [facility] 2017-11-19 2017-11-19 Outpatient [facility] [id number] [place] 00:00:00 00:00:00 [facility] 2017-11-18 2017-11-18 Outpatient [facility] [id number] [place] 15:10:12 15:10:12 [facility] 2017-10-01 2017-10-01 Outpatient [facility] [id number] [place] 11:30:31 11:30:31 [facility] 2017-09-21 2017-09-21 Outpatient [facility] [id number] [place] 08:03:26 08:03:26 [facility] 2017-09-18 2017-09-18 Emergency [facility] [id number] [place] 07:23:44 07:23:44 [facility] 2017-09-18 2017-09-18 Outpatient [facility] [id number] [place] 05:56:05 05:56:05 [facility] 2017-09-17 2017-09-17 Outpatient [facility] [id number] [place] 08:15:41 08:15:41 [facility] 2017-07-23 2017-07-23 Outpatient [facility] [id number] [place] 15:36:19 15:36:19 [facility] 2017-07-23 2017-07-23 Outpatient [facility] [id number] [place] 14:59:04 14:59:04 [facility] 2017-07-13 2017-07-13 Outpatient [facility] [id number] [place] 00:00:00 00:00:00 [facility] 2017-07-10 2017-07-10 Outpatient [facility] [id number] [place] 00:00:00 00:00:00 [facility] 2017-07-10 2017-07-10 Outpatient [facility] [id number] [place] 00:00:00 00:00:00 [facility] 2017-07-09 2017-07-09 Outpatient [facility] [id number] [place] 00:00:00 00:00:00 [facility] 2017-06-29 2017-06-29 Outpatient [facility] [id number] [place] 15:53:56 15:53:56 [facility] 2017-06-29 2017-06-29 Outpatient [facility] [id number] [place] 14:17:15 14:17:15 [facility] 2017-06-29 2017-06-29 Outpatient [facility] [id number] [place] 00:00:00 00:00:00 [facility] 2017-04-16 2017-04-16 Outpatient [facility] [id number] [place] 00:00:00 00:00:00 [facility] 2017-04-16 2017-04-16 Outpatient [facility] [id number] [place] 00:00:00 00:00:00 [facility] 2017-02-12 2017-02-12 Outpatient [facility] [id number] [place] 14:33:28 14:33:28 [facility] 2017-02-11 2017-02-11 Outpatient [facility] [id number] [place] 00:00:00 00:00:00 [facility] 2017-02-11 2017-02-11 Outpatient [facility] [id number] [place] 00:00:00 00:00:00 [facility] 2017-01-28 2017-01-28 Outpatient [facility] [id number] [place] 09:07:41 09:07:41 [facility] 2016-12-25 2016-12-25 Outpatient [facility] [id number] [place] 14:25:02 14:25:02 [facility] 2016-12-09 2016-12-09 Outpatient [facility] [id number] [place] 13:47:43 13:47:43 Health 2016-12-08 2016-12-08 Outpatient [facility] [id number] [place] 20:48:46 20:48:46 Health 2016-12-08 2016-12-08 Outpatient [facility] [id number] [place] 16:43:47 16:43:47 Health 2016-12-08 2016-12-08 Emergency [facility] [id number] [place] 11:02:23 11:02:23 [facility] 2016-10-17 2016-10-17 Outpatient [facility] [id number] [place] 00:00:00 00:00:00 [facility] 2016-10-10 2016-10-10 Emergency [facility] [id number] [place] 22:11:18 22:11:18 [facility] 2016-10-10 2016-10-10 Emergency [facility] [id number] [place] 16:59:51 16:59:51 [facility] 2016-10-09 2016-10-09 Emergency [facility] [id number] [place] 11:27:52 11:27:52 [facility] 2016-10-09 2016-10-09 Emergency [facility] [id number] [place] 10:59:15 10:59:15 [facility] 2016-10-09 2016-10-09 Outpatient [facility] [id number] [place] 00:00:00 00:00:00 [facility] 2016-10-04 2016-10-04 Emergency [facility] [id number] [place] 06:00:49 06:00:49 [facility] 2014-04-06 2014-04-06 Outpatient [facility] [id number] [place] 09:16:01 09:16:01 Health Results Test Description Test Time Test Comments Results Result [facility] e Comments RAD, ELBOW, 3 2019-11-16 Reason for FINAL REPORT PATIENT VIEWS, LEFT 11:48:00 Exam:->TENDERNE ID: [id number] SS L LATERAL TECHNIQUE: Three views EPICODYLE of the left wrist, and four views of the left elbow HISTORY: TENDERNESS L DISTAL RADIUS. COMPARISON: None. IMPRESSION:Left wrist:No acute displaced fracture or dislocation. Mild scattered joint space narrowing/osteophytosis and subchondral cystic change.No acute soft tissue abnormality.If pain persists, consider repeat short interval radiograph versus MRI. Left elbow:No acute displaced fracture or dislocation. Joint spaces are within normal limits.No acute soft tissue abnormality.If pain persists, consider repeat short interval radiograph versus MRI. Signed: Abel Mcgrathort Verified Date/Time: 11/16/2019 11:48:04 Reading Location: [facility] Radiology Reading Room , WRIST, LEFT, 2019-11-16 Reason for FINAL REPORT PATIENT COMPLETE (MIN 3 11:48:00 Exam:->TENDERNE ID: [id number] VIEWS) SS L DISTAL TECHNIQUE: Three views RADIUS of the left wrist, and four views of the left elbow HISTORY: TENDERNESS L DISTAL RADIUS. COMPARISON: None. IMPRESSION:Left wrist:No acute displaced fracture or dislocation. Mild scattered joint space narrowing/osteophytosis and subchondral cystic change.No acute soft tissue abnormality.If pain persists, consider repeat short interval radiograph versus MRI. Left elbow:No acute displaced fracture or dislocation. Joint spaces are within normal limits.No acute soft tissue abnormality.If pain persists, consider repeat short interval radiograph versus MRI. Signed: Abel Mcgrath Verified Date/Time: 11/16/2019 11:48:04 Reading Location: [facility] Radiology Reading Room , DESIGN VERIFICATION ENGINEER IN 2018-02-09 Reason for FLUOROSCOPIC UNIT OR/30 MINUTE 09:34:00 exam:->RIGHT UTILIZED-NO INCREMENTS ANKLE HARDWARE INTERPRETATION REMOVAL REQUESTED. TROLYTES 2018-02-03 17:33:00 Test Item Value Reference Range Interpretation Comme nts SODIUM (BEAKER) (test code = 381) 140 meq/L 136-145 POTASSIUM (BEAKER) (test code = 379) 3.9 meq/L 3.5-5.1 Specimen slightly hemolyzed CHLORIDE (BEAKER) (test code = 382) 107 meq/L 98-107 CO2 (BEAKER) (test code = 355) 25 meq/L 22-29 BUN AND [id number] 17:33:00 Test Item Value Reference Range Interpretation Comments BLOOD UREA NITROGEN 14 mg/dL 7-21 (BEAKER) (test code = 354) CREATININE (BEAKER) 1.31 mg/dL 0.57-1.25 H Specimen slightly (test code = 358) hemolyzed EGFR (BEAKER) (test 69 mL/min/1.73 ESTIMA MAGGIE GFR IS code = 1092) sq m NOT ACCURATE CREATININE CLEARANCE IN PREDICTING GLOMERULAR FILTRATION RATE . ESTIMATED GFR I S NOT APPLICABLE FOR DIALYSIS PATIEN TS. [id number] 17:19:00 Test Item Value Reference Range Interpretation Comments HEMOGLOBIN (BEAKER) (test code = 15.3 GM/DL 13.7-17.5 410) PLATELET [id number] 17:19:00 Test Item Value Reference Range Interpretation Comments PLATELET COUNT (BEAKER) (test 326 K/CU MM 150-450 code = 756)
== END 2021-01-31 13:10 | disposition home or self-care (01) | DRG 291 ==
LOC: ER 17:52 → ERHOLD 20:14 → UNDOADMIN 20:14 → ERHOLD 20:18 → 2ND 21:07
PROVIDERS: ADMIT Internal Medicine; ATTEND Internal Medicine
DX: I11.0 Hypertensive heart disease with heart failure (principal); I50.33 Acute on chronic diastolic (congestive) heart failure; B37.0 Candidal stomatitis; J44.9 Chronic obstructive pulmonary disease, unspecified; K76.0 Fatty (change of) liver, not elsewhere classified; E03.9 Hypothyroidism, unspecified; R73.03 Prediabetes; F17.210 Nicotine dependence, cigarettes, uncomplicated; E78.5 Hyperlipidemia, unspecified; Z20.822 Contact with and (suspected) exposure to COVID-19
CPT/HCPCS: 36415; 71045; 76705; 80048; 80053; 80061; 80076; 81003; 82947; 83036; 83735; 83880; 84100; 84439; 84443; 84484; 85025; 85610; 93005; 93306; 93970; 94640; 94760; 96374; 99285; J1650; J1940; U0003

== ENCOUNTER 2021-02-03 15:01 | Emergency (ER) | payer OTHER ==
[2021-02-03 17:24] LABS: Basophils % 0.5 % (0-1.3); Hematocrit 39.5 % (39.6-49.0); Lymphocytes % 28.9 % (15.3-44.8); MPV 7.9 fL (7.6-11.3); Protime INR 1.09; RBC Red Blood Cell Count 4.29 M/uL (4.33-5.43)
[2021-02-03 17:32] LABS: Albumin 3.8 g/dL (3.4-5.0); BUN Blood Urea Nitrogen 13 mg/dL (7-18); Bicarbonate 30 mmol/L (21-32); Magnesium 2.3 mg/dL (1.8-2.4); Potassium 3.6 mmol/L (3.5-5.1); Sodium Level 142 mmol/L (136-145)
[2021-02-03 17:41] LABS: ALT/SGPT 95 U/L (12-78); AST/SGOT 51 U/L (15-37); Alkaline Phosphatase 81 U/L (45-117); Bilirubin Direct 0.1 mg/dL (0-0.2); Bilirubin Total 0.3 mg/dL (0.2-1.0); Glucose Level 109 mg/dL (74-106); NT PRO-BNP 21 pg/mL (<125); Protein, Total 7.7 g/dL (6.4-8.2); Troponin (Emerg Dept Use Only) < 0.02 ng/mL (0.0-0.045)
--- NOTE | 2021-02-03 18:14 | EDPHYS ---
Physician Documentation [facility] Name: Weston Saba Age: 60 yrs Sex: Male : 1960 Arrival Date: 02/03/2021 Time: 15:07 Bed 8 Private MD: ED Physician Jesusita Hollis HPI: 02/03 17:31 This 60 yrs old Black Male presents to ER via Ambulatory with complaints of Fluid sp3 Retention. 17:31 60-year-old male with a history of hypertension, hyperlipidemia, diabetes, systolic sp3 congestive heart failure recently seen 1 week ago and now presents again with chief complaint fluid retention, increased weight gain and dyspnea. Patient also has peripheral edema. Patient denies any changes in his diet or any other inciting event that would elicit his congestive heart failure. Patient denies headache, neck pain, chest pain, back pain, abdominal pain, nausea, vomiting, diarrhea, syncope, neuro symptoms, no sick contacts, travel history, any other symptoms at this time. Remainder of ROS is negative.. Historical: - Allergies: 15:34 No Known Allergies; tw2 - Home Meds: 15:34 albuterol sulfate 2 mg/5 mL Oral syrp [Active]; budesonide 3 mg Oral CECX [Active]; tw2 budesonide-formoterol 160-4.5 2 puff BID [Active]; furosemide 20 mg Oral tab 1 tab once daily [Active]; gabapentin 300 mg Oral cap 1 cap BID [Active]; levothyroxine 50 mcg cap 1 cap once daily [Active]; Lipitor 40 mg Oral tab 1 tab once daily [Active]; metformin 500 mg Oral tab 1 tab every morning [Active]; omeprazole 40 mg Oral cpDR 1 cap once daily [Active]; stiolto respimat 2.5 2 puffs nasal daily [Active]; trelegy 200-62.5-25 1 puff daily [Active]; - PMHx: 15:34 hyperthyroidism; Hypertensive disorder; Hypercholesterolemia; diabetes mellitus; tw2 Chronic systolic heart failure; - Immunization history:: Client reports receiving the 1st dose of the Covid vaccine. - Social history:: Smoking status: Patient reports the use of cigarette tobacco products, 5 cigarettes a day, Patient uses alcohol, street drugs, cocaine, marijuana, "maybe 4 or 5 days a week". i last used 2.5 weeks ago. ROS: 17:33 Constitutional: Negative for fever, chills, and weight loss, Eyes: Negative for injury, sp3 pain, redness, and discharge, ENT: Negative for injury, pain, and discharge, Neck: Negative for injury, pain, and swelling, Cardiovascular: Negative for chest pain, palpitations, and edema, Abdomen/GI: Negative for abdominal pain, nausea, vomiting, diarrhea, and constipation, Back: Negative for injury and pain, MS/Extremity: Negative for injury and deformity, Skin: Negative for injury, rash, and discoloration, Neuro: Negative for headache, weakness, numbness, tingling, and seizure, Psych: Negative for depression, anxiety, suicide ideation, homicidal ideation, and hallucinations, Allergy/Immunology: Negative for hives, rash, and allergies, Endocrine: Negative for neck swelling, polydipsia, polyuria, polyphagia, and marked weight changes, Hematologic/Lymphatic: Negative for swollen nodes, abnormal bleeding, and unusual bruising. 17:33 Respiratory: Positive for sp3 17:33 All other systems are negative. Exam: 17:34 Constitutional: This is a well developed, well nourished patient who is awake, alert, sp3 and in no acute distress. Head/Face: Normocephalic, atraumatic. Eyes: Pupils equal round and reactive to light, extra-ocular motions intact. Lids and lashes normal. Conjunctiva and sclera are non-icteric and not injected. Cornea within normal limits. Periorbital areas with no swelling, redness, or edema. ENT: Nares patent. No nasal discharge, no septal abnormalities noted. External auditory canals are clear. Oropharynx with no redness, swelling, or masses, exudates, or evidence of obstruction, uvula midline. Mucous membranes moist. Neck: Trachea midline, no thyromegaly or masses palpated, and no cervical lymphadenopathy. Supple, full range of motion without nuchal rigidity, or vertebral point tenderness. No Meningismus. Chest/axilla: Normal chest wall appearance and motion. Nontender with no deformity. No lesions are appreciated. Cardiovascular: Regular rate and rhythm with a normal S1 and S2. No gallops, murmurs, or rubs. Normal PMI, no JVD. No pulse deficits. Abdomen/GI: Soft, non-tender, with normal bowel sounds. No distension or tympany. No guarding or rebound. No evidence of tenderness throughout. Back: No spinal tenderness. No costovertebral tenderness. Full range of motion. Skin: Warm, dry with normal turgor. Normal color with no rashes, no lesions, and no evidence of cellulitis. Neuro: Awake and alert, GCS 15, oriented to person, place, time, and situation. Cranial nerves II-XII grossly intact. Motor strength 5/5 in all extremities. Sensory grossly intact. Cerebellar exam normal. Normal gait. Psych: Awake, alert, with orientation to person, place and time. Behavior, mood, and affect are within normal limits. 17:34 Respiratory: Patient is bilateral pitting edema 2+ distally and Rales bilateral lung bases. Cardiac exam is normal.. 17:35 ECG was reviewed by the Attending Physician. EKG demonstrates normal sinus rhythm at 62 sp3 bpm with normal intervals, normal QRS, normal axis, nonspecific diffuse ST/T changes without evidence of ischemia. Vital Signs: 15:31 BP 126 / 85; Pulse 72; Resp 17; Temp 97.9(O); Pulse Ox 99% on R/A; Weight 115.67 kg tw2 (R); Height 5 ft. 6 in. (167.64 cm); Pain 8/10; 17:31 BP 106 / 84; Pulse 65; Resp 20; Pulse Ox 98% ; vg1 18:30 BP 105 / 83; Pulse 60; Resp 16; Pulse Ox 100% ; vg1 15:31 Body Mass Index 41.16 (115.67 kg, 167.64 cm) tw2 15:31 back pain tw2 MDM: 16:57 Patient medically screened. sp3 17:34 Data reviewed: vital signs, nurses notes. ED course: 60-year-old male with CHF sp3 exacerbation. Will assess severity with chest x-ray, laboratory values and also obtain an EKG. Consider treatment with Lasix and discharge versus 23-hour observation. Believe there is an inciting event such as acute coronary syndrome or infection that is elicited to CHF. 1 set of cardiac markers will also be obtained in the ED.. 18:12 ED course: Chest x-ray demonstrates no significant pulmonary edema and BNP levels are sp3 normal. Creatinine is 1.3. We will give Lasix 40 mg IV in the ED with instructions for the home to give 40 mg p.o. for 2 more days before dropping to the 20 mg baseline level. At this point patient does not have a CHF exacerbation but has simple fluid retention given his physical exam and weight. Patient to follow-up with PCP as needed.. 02/03 16:57 Order name: Basic Metabolic Panel; Complete Time: 17:48 sp3 02/03 16:57 Order name: CBC with Diff; Complete Time: 17:48 sp3 02/03 16:57 Order name: LFT's; Complete Time: 17:48 sp3 02/03 16:57 Order name: Magnesium; Complete Time: 17:48 sp3 02/03 16:57 Order name: NT PRO-BNP; Complete Time: 17:48 sp3 02/03 16:57 Order name: PT-INR; Complete Time: 17:48 sp3 02/03 16:57 Order name: Troponin (emerg Dept Use Only); Complete Time: 17:48 sp3 02/03 16:57 Order name: XRAY Chest (1 view) sp3 02/03 16:57 Order name: EKG; Complete Time: 16:57 sp3 02/03 16:57 Order name: Cardiac monitoring; Complete Time: 17:29 sp3 02/03 16:57 Order name: EKG - Nurse/Tech; Complete Time: 17:29 sp3 02/03 16:57 Order name: IV Saline Lock; Complete Time: 17:29 sp3 02/03 16:57 Order name: Labs collected and sent; Complete Time: 17:29 sp3 02/03 16:57 Order name: O2 Per Protocol; Complete Time: 17:10 sp3 02/03 16:57 Order name: O2 Sat Monitoring; Complete Time: 17:10 sp3 Administered Medications: 18:40 Drug: Lasix (furosemide) 40 mg Route: IVP; Site: left antecubital; vg1 18:47 Follow up: Response: Medication administered at discharge. vg1 Disposition Summary: 02/03/21 18:14 Discharge Ordered Location: Home sp3 Condition: Stable sp3 Diagnosis - Acute systolic (congestive) heart failure sp3 - Fluid overload, unspecified sp3 Discharge Instructions: - Discharge Summary Sheet sp3 - Heart Failure, Diagnosis sp3 Forms: - Medication Reconciliation Form sp3 - Thank You Letter sp3 - Antibiotic Education sp3 - Prescription Opioid Use sp3 Signatures: Dispatcher [employer] EDMS Williamson, Soni, RN RN tw2 April Christianson RN RN vg1 Jesusita Hollis MD MD sp3 Corrections: (The following items were deleted from the chart) 17:34 17:33 Respiratory: Positive for Patient has rales bilaterally and peripheral edema 2+ sp3 pitting., sp3
--- NOTE | 2021-02-03 18:14 | ER ---
Nurse's Notes [facility] Name: Weston Saba Age: 60 yrs Sex: Male : 1960 Arrival Date: 02/03/2021 Time: 15:07 Bed 8 Private MD: Diagnosis: Acute systolic (congestive) heart failure;Fluid overload, unspecified Presentation: 02/03 15:31 Chief complaint: Patient states: i am back for the same thing i was in here before for. tw2 i have CHF and the fluid is back. my face is starting to swell again and my stomach. so they told me to come back if i felt the fluid was back. Chief complaint: Patient states: i feel like the swelling is causing my back to hurt and my stomach feels swollen as well. Coronavirus screen: At this time, the client does not indicate any symptoms associated with coronavirus-19. Ebola Screen: Patient denies travel to an Ebola-affected area in the 21 days before illness onset. Initial Sepsis Screen: Does the patient meet any 2 criteria? No. Patient's initial sepsis screen is negative. Does the patient have a suspected source of infection? No. Patient's initial sepsis screen is negative. Risk Assessment: Do you want to hurt yourself or someone else? Patient reports no desire to harm self or others. Onset of symptoms was February 03, 2021. 15:31 Method Of Arrival: Ambulatory tw2 15:31 Acuity: DANIELA 3 tw2 Triage Assessment: 15:36 General: Appears in no apparent distress. well groomed, Behavior is calm, cooperative, tw2 appropriate for age. Pain: Complains of pain in back. Historical: - Allergies: 15:34 No Known Allergies; tw2 - Home Meds: 15:34 albuterol sulfate 2 mg/5 mL Oral syrp [Active]; budesonide 3 mg Oral CECX [Active]; tw2 budesonide-formoterol 160-4.5 2 puff BID [Active]; furosemide 20 mg Oral tab 1 tab once daily [Active]; gabapentin 300 mg Oral cap 1 cap BID [Active]; levothyroxine 50 mcg cap 1 cap once daily [Active]; Lipitor 40 mg Oral tab 1 tab once daily [Active]; metformin 500 mg Oral tab 1 tab every morning [Active]; omeprazole 40 mg Oral cpDR 1 cap once daily [Active]; stiolto respimat 2.5 2 puffs nasal daily [Active]; trelegy 200-62.5-25 1 puff daily [Active]; - PMHx: 15:34 hyperthyroidism; Hypertensive disorder; Hypercholesterolemia; diabetes mellitus; tw2 Chronic systolic heart failure; - Immunization history:: Client reports receiving the 1st dose of the Covid vaccine. - Social history:: Smoking status: Patient reports the use of cigarette tobacco products, 5 cigarettes a day, Patient uses alcohol, street drugs, cocaine, marijuana, "maybe 4 or 5 days a week". i last used 2.5 weeks ago. Screenin:13 Abuse screen: Denies threats or abuse. Nutritional screening: No deficits noted. vg1 Tuberculosis screening: No symptoms or risk factors identified. Fall Risk No fall in past 12 months (0 pts). No secondary diagnosis (0 pts). IV access (20 points). Ambulatory Aid- None/Bed Rest/Nurse Assist (0 pts). Gait- Normal/Bed Rest/Wheelchair (0 pts) Mental Status- Oriented to own ability (0 pts). Total Nuñez Fall Scale indicates No Risk (0-24 pts). Assessment: 17:10 Reassessment: Pt stated this morning weighed self and was 250 lbs and with in hours, vg1 around lunch time was 255 lbs. General: Appears in no apparent distress. uncomfortable, Behavior is calm, cooperative. Pain: Complains of pain in left upper quadrant Pain currently is 8 out of 10 on a pain scale. Pain began suddenly. Neuro: Level of Consciousness is awake, alert, obeys commands, Oriented to person, place, time, situation. Cardiovascular: Patient's skin is warm and dry. Respiratory: Airway is patent Respiratory effort is even, unlabored, Breath sounds are diminished in left posterior lower lobe and right posterior lower lobe Breath sounds with wheezes bilaterally. GI: Abdomen is round distended, Patient currently denies diarrhea, nausea, vomiting. : No signs and/or symptoms were reported regarding the genitourinary system. EENT: No signs and/or symptoms were reported regarding the EENT system. Derm: Skin is intact, is healthy with good turgor. Musculoskeletal: Circulation, motion, and sensation intact. Swelling present in KUSH lower extremities. 18:47 Reassessment: Patient appears in no apparent distress at this time. No changes from vg1 previously documented assessment. Patient and/or family updated on plan of care and expected duration. Pain level reassessed. Patient is alert, oriented x 3, equal unlabored respirations, skin warm/dry/pink. Vital Signs: 15:31 BP 126 / 85; Pulse 72; Resp 17; Temp 97.9(O); Pulse Ox 99% on R/A; Weight 115.67 kg tw2 (R); Height 5 ft. 6 in. (167.64 cm); Pain 8/10; 17:31 BP 106 / 84; Pulse 65; Resp 20; Pulse Ox 98% ; vg1 18:30 BP 105 / 83; Pulse 60; Resp 16; Pulse Ox 100% ; vg1 15:31 Body Mass Index 41.16 (115.67 kg, 167.64 cm) tw2 15:31 back pain tw2 ED Course: 15:07 Patient arrived in ED. ds1 15:33 Triage completed. tw2 15:33 Arm band placed on. tw2 16:54 April Christianson, MIRA is Primary Nurse. vg1 16:54 Jesusita Hollis MD is Attending Physician. sp3 17:13 Patient has correct armband on for positive identification. Placed in gown. Bed in low vg1 position. Call light in reach. Side rails up X 1. Adult w/ patient. 17:13 No provider procedures requiring assistance completed. vg1 17:25 Inserted saline lock: 18 gauge in left antecubital area, using aseptic technique. Blood jd3 collected. 18:16 XRAY Chest (1 view) In Process Unspecified. EDMS 18:48 IV discontinued, intact, bleeding controlled, No redness/swelling at site. Pressure vg1 dressing applied. Administered Medications: 18:40 Drug: Lasix (furosemide) 40 mg Route: IVP; Site: left antecubital; vg1 18:47 Follow up: Response: Medication administered at discharge. vg1 Outcome: 18:14 Discharge ordered by . sp3 18:48 Discharged to home ambulatory, with friend. vg1 18:48 Condition: stable 18:48 Discharge instructions given to patient, Instructed on discharge instructions, follow up and referral plans. medication usage, Demonstrated understanding of instructions, follow-up care, medications. 18:48 Patient left the ED. vg1 Signatures: Dispatcher [employer] EDMS Linda Polanco ds1 Soni Williamson RN RN tw2 Tr Pedraza RN RN jd3 April Christianson RN RN vg1 Jesusita Hollis MD MD sp3 Corrections: (The following items were deleted from the chart) 17:10 Cardiovascular: Patient's skin is warm and dry. vg1 vg1 17:10 Derm: Skin is intact, is healthy with good turgor, vg1 vg1 17:10 Musculoskeletal: Circulation, motion, and sensation intact. vg1 vg1
--- NOTE | 2021-02-03 18:22 | RAD REPORT ---
EXAM DESCRIPTION: Jamila Single View02/03/2021 6:16 pm CLINICAL HISTORY: sob COMPARISON: January 29, 2021 FINDINGS: The lungs appear clear of acute infiltrate. The heart is normal size IMPRESSION: No acute abnormalities displayed
[2021-02-03] MEDS ORDERED: FUROSEMIDE 40 MG/4 ML VIAL ONE (18:25)
[2021-02-03 18:59] VITALS: TEMP 97.9
[2021-02-03 19:03] VITALS: BP 105/83; O2SAT 100
--- NOTE | 2021-02-04 18:26 | EKG ---
Test Date: 2021-02-03 Test Time: 17:23:36 Retail Reset Merchandiser: LUCIE MEASUREMENT RESULTS: Intervals: Rate: 62 IN: 156 QRSD: 84 QT: 386 QTc: 391 [place]: P: 41 IN: 156 QRS: 20 T: 11 INTERPRETIVE STATEMENTS: Normal sinus rhythm Cannot rule out Anterior infarct, age undetermined Abnormal ECG Compared to ECG 01/29/2021 18:38:47 Atrial premature complex(es) no longer present Aberrant conduction of supraventricular beat(s) no longer present Myocardial infarct finding still present Electronically Signed On 02-04-21 18:23:38 WHITE MIXING OPERATOR by Junaid Sylvester
--- OUTSIDE RECORDS SUMMARY | 2021-02-09 15:39 | XMS REPORT | Continuity of Care Document ---
:1960 Author Organization [facility] t Address [address] [place] [address] Care Team Providers Name Role Phone CHEYANNE [...] Expiration Date S nils MEDICARE A B [id number] 2019 00:00:00 [facility] COMM STAR [id number] 2020 PLAN 00:00:00 MEDICAID [facility] [id number] 2020 00:00:00 MEDICARE PART A & B [id number] 2019 00:00:00 TP13 SSI RECIPIENT [id number] 2019 00:00:00 AB Group [id number] 2019 2020 EXCHANGE 00:00:00 00:00:00 GENERIC COMMERCIAL [id number] 2018 2018 00:00:00 00:00:00 Problems Condition Condition Condition Status Onset Resolution Last Treating Co mments Source Name Details Category Date Date Treatment Clinician Date Closed Closed Disease Active 2017-03 [facility] fracture fracture 0-25 Colleg [facility] of distal of distal 00:00: of end of end of Medicin right 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 Orchalgia Orchalgia Disease Active [address] 00:00: of 00 Medicin e Flank pain Flank pain Disease Active [facility] [address] 00:00: of 00 Medicin e Allergies, Adverse Reactions, Alerts Allergy Allergy Status Severity Reaction(s) Onset Inactive Treating Comm ents Source Name Type Date Date Clinician NO KNOWN Allergy Active [facility] Social History Social Habit Start Date Stop Date Quantity Comments Source Exposure to Not sure [facility] e SARS-CoV-2 (event) of Med icine History [facility] Medicine [facility] Cigarettes smoked 2020-02-02 2020-02-02 [facility] current (pack per 00:00:00 00:00:00 of [facility] [employer] ) - Reported Cigarette 2020-02-02 2020-02-02 [facility] pack-years 00:00:00 00:00:00 of Medicine Alcohol intake 2020-02-02 2020-02-02 Current drinker [facility] 00:00:00 00:00:00 of alcohol of [facility] (finding) Tobacco use and 2020-02-02 2020-02-02 Never used [facility] llege exposure 00:00:00 00:00:00 of Medicine History [facility] 2019-09-19 2019-09-19 5 [facility] Alcohol Frequency 00:00:00 00:00:00 of Medi cine History [facility] 2019-09-19 2019-09-19 1 [facility] Alcohol Std Drinks 00:00:00 00:00:00 of Med icine Smoking Status Start Date Stop Date Source Current every day smoker 2020-02-02 00:00:00 [facility] Medications Ordered Filled Start Stop Current Ordering Indication Dosage Frequency Signature Comments Components Source Medication Medication Date Date Medication? Clinician (SIG) Name Name Tiotropium 2019-03 Yes [id number] 2{puff} Inhale 2 [facility] [place] 1-05 Puffs by [facility] daterol 00:00: nose of (STIOLTO 00 daily. Medicin RESPIMAT) e 2.5-2.5 MCG/ACT AERS Tiotropium 2020-0 Yes [id number] 2 [facility] [place] 6-19 inhalation Colleg e Monohydrate 00:00: s daily of (SPIRIVA 00 for Medicin RESPIMAT) treatment e 2.5 MCG/ACT of COPD AERS Tiotropium 0 2020- No [id number] 2 [facility] [place] 6-19 11-05 inhalation Colle ge Monohydrate 00:00: 00:00 s daily of (SPIRIVA 00 :00 for Medicin RESPIMAT) treatment e 2.5 MCG/ACT of COPD AERS quetiapine 2019-0 Yes 600mg Take 600 [facility] (SEROQUEL) 6-11 mg by College 300 MG 00:00: mouth at of tablet 00 bedtime. Medicin e tramadol 2019-0 Yes 50mg Take 50 mg [facility] (ULTRAM) 50 6-05 by mouth. Col lege MG tablet 00:00: of 00 Medicin e tramadol 2019-0 Yes 50mg Take 50 mg [facility] (ULTRAM) 50 6-05 by mouth. Col lege MG tablet 00:00: of 00 Medicin e omeprazole 2019-0 2020- No 40mg Take 40 mg [facility] (PRILOSEC) 6-05 06-06 by mouth. Col lege [...] 2019-0 2020- No 2{puff} 2 Puffs by [facility] Formoterol 5-15 11-05 Inhalation Co llege Fumarate 00:00: 00:00 route. of 160-4.5 00 :00 Medicin MCG/ACT e AERO losartan 2019-0 Yes 25mg Take 25 mg [facility] (COZAAR) 25 4-24 by mouth. Col lege MG tablet 00:00: of 00 Medicin e losartan 2019-0 Yes 25mg Take 25 mg [facility] (COZAAR) 25 4-24 by mouth. Col lege MG tablet 00:00: of 00 Medicin e metformin 2020-0 Yes 500mg Take 500 [facility] (GLUCOPHAGE 4-01 mg by [place] ) 500 MG 00:00: mouth. of tablet 00 Medicin e levothyroxi 2020-0 Yes 50ug Take 50 [facility] ne 4-01 mcg by [place] (SYNTHROID) 00:00: mouth. of 50 MCG 00 Medicin tablet e methylPREDN 2019-0 Yes follow [facility] or ISolone 4 06-28 package College MG TBPK 00:00: directions of 00 . Medicin e metformin 2020-0 Yes 500mg Take 500 [facility] (GLUCOPHAGE 4-01 mg by [place] ) 500 MG 00:00: mouth. of tablet 00 Medicin e levothyroxi 2020-0 Yes 50ug Take 50 [place] [facility] ne 4-01 mcg by [place] (SYNTHROID) 00:00: mouth. of 50 MCG 00 Medicin tablet e albuterol 2019-0 2020- No 1.25mg 1.25 mg by [facility] (ACCUNEB) 06-28 Inhalation Col lege 1.25 MG/3ML 00:00: 04:59 route. of nebulizer 00 :00 Medicin solution e budesonide 2019-0 2020- No .5mg 0.5 mg by [facility] [place] (PULMICORT) 06-28 Inhalation C ollege 0.5 MG/2ML 00:00: 04:59 route. of nebulizer 00 :00 Medicin suspension e albuterol 2019-0 2020- No 1.25mg 1.25 mg by [facility] (ACCUNEB) 06-28 Inhalation Col lege 1.25 MG/3ML 00:00: 04:59 route. of nebulizer 00 :00 Medicin solution e budesonide 2019-0 2020- No .5mg 0.5 mg by [facility] [place] (PULMICORT) 06-28 Inhalation C ollege 0.5 MG/2ML 00:00: 00:00 route. of nebulizer 00 :00 Medicin suspension e methylPREDN 2020-0 2020- No follow [facility] ISolone 4 06-28 package Colleg e [...] ipratropium 2019-0 Yes 3mL 3 mL by [facility] -albuterol 4-02 Inhalation [facility] (DUO-NEB) 00:00: route. of 0.5-2.5 (3) 00 Medicin MG/3ML e ipratropium 2019-0 Yes 3mL 3 mL by [facility] -albuterol 4-02 Inhalation [facility] (DUO-NEB) 00:00: route. of 0.5-2.5 (3) 00 Medicin MG/3ML e sulfamethox 2018-0 Yes 1{tbl} Take 1 Tab [facility] azole-trime 8-14 by mouth [facility] thoprim 00:00: two times of (BACTRIM 00 daily. Medicin DS) 800-160 e MG per tablet sulfamethox 2018-0 2020- No 1{tbl} Take 1 Tab [facility] azole-trime 8-14 11-05 by mouth [facility] thoprim 00:00: 00:00 two times of (BACTRIM 00 :00 daily. Medicin DS) 800-160 e MG per tablet atorvastati 2018-0 Yes 40mg Take 40 mg [facility] n (LIPITOR) 4-02 by mouth. Col lege 40 MG 00:00: of tablet 00 Medicin e atorvastati 2018-0 Yes 40mg Take 40 mg [facility] n (LIPITOR) 4-02 by mouth. Col lege 40 MG 00:00: of tablet 00 Medicin e albuterol 2017- Yes 2{puff} 2 Puffs by [facility] 108 (90 0-09 Inhalation Colleg e base) 00:00: route. of mcg/act 00 Medicin inhaler e albuterol 2016- Yes 2{puff} 2 Puffs by [facility] 108 (90 0-09 Inhalation Colleg e base) 00:00: route. of mcg/act 00 Medicin inhaler e divalproex 2017-0 Yes 1000mg Take 1,000 [facility] (DEPAKOTE) 7-15 mg by [place] 500 MG EC 00:00: mouth. of tablet 00 Medicin e divalproex Yes 1000mg Take 1,000 [facility] (DEPAKOTE) 7-15 mg by [place] 500 MG EC 00:00: mouth. of tablet 00 Medicin e Calcium-D Yes Take by [facility] or (PX 2-05 mouth. [place] CALCIUM&D) 00:00: of 600-400 00 Medicin MG-UNIT e TABS Calcium-D Yes Take by [facility] or (PX 2-05 mouth. [place] CALCIUM&D) 00:00: of 600-400 00 Medicin MG-UNIT e TABS Immunizations Ordered Immunization Filled Immunization Date Status Commen ts Source Name Name Pneumococcal 2020-02-02 Completed [facility] Colle ge Polysaccharide 00:00:00 of Medicin e [...] kg Systolic blood 2020-02-02 20:17:00 131 mm[Hg] [facility] pressure Medicine Diastolic blood 2020-02-02 20:17:00 87 mm[Hg] [facility] of pressure Medicine Heart rate 2020-02-02 20:17:00 63 /min [facility] Respiratory rate 2020-02-02 20:17:00 16 /min [facility] Body height 2020-02-02 20:17:00 165.1 cm [facility] ollege of Medicine Body weight 2020-02-02 20:17:00 120.203 kg [facility] BMI 2020-02-02 20:17:00 44.10 kg/m2 [facility] HEIGHT 2019-12-30 00:00:00 160 cm WEIGHT 2019-12-30 00:00:00 117.482 kg HEIGHT 2019-11-18 00:00:00 160 cm WEIGHT 2019-11-18 00:00:00 115.577 kg HEIGHT 2019-11-10 00:00:00 160 cm WEIGHT 2019-11-10 00:00:00 112.946 kg HEIGHT 2019-10-20 00:00:00 160 cm WEIGHT 2019-10-20 00:00:00 113.231 kg HEIGHT 2019-10-13 00:00:00 160 cm WEIGHT 2019-10-13 00:00:00 114.579 kg Systolic blood 2019-09-16 16:55:00 138 mm[Hg] [facility] of pressure Medicine Diastolic blood 2019-09-16 16:55:00 96 mm[Hg] [facility] Medicine Heart rate 2019-09-16 16:55:00 72 /min [facility] Body temperature 2019-09-16 16:55:00 36.72 Asha [facility] Respiratory rate 2019-09-16 16:55:00 16 /min [facility] Body height 2019-09-16 16:55:00 [facility] weight 2019-09-16 16:55:00 112.038 [facility] BMI 2019-09-16 16:55:00 41.10 [facility]/m2 [facility] HEIGHT 2019-09-02 00:00:00 160 cm WEIGHT 2019-09-02 00:00:00 108.591 kg Procedures This patient has no known procedures. Plan of Care Planned Activity Planned Date Details Comments Source Future Scheduled COLON CANCER [facility] ege Test SCREENING: COLONOSCOPY of Me roman [code = COLON CANCER SCREENING: COLONOSCOPY] Future Scheduled TETANUS SHOT (ADULT) [facility] Test [code = TETANUS SHOT of Medi [...] icine 6 MONTHS] Future Scheduled COLON CANCER [facility] ege Test SCREENING: COLONOSCOPY of Me dicine [...] Medicine Future Scheduled ZOSTER VACCINE (1 of [facility] [employer] Test 2) [code = ZOSTER of Medicin e VACCINE (1 of 2)] Future Scheduled FLU VACCINE > 6 MONTHS [employer] Test [code = FLU VACCINE > of Med icine 6 MONTHS] Future Scheduled TETANUS SHOT (ADULT) [facility] College Test [code = TETANUS SHOT of Medi cine (ADULT)] Future Scheduled DIAGNOSTIC SLEEP STUDY 1 Occurrences [facility] Test [code = 249877607] starting of Medici ne 09/16/2019 until 09/15/2020 Future Scheduled COMPLETE PFT WITH 1 Occurrences [facility] Test BRONCHODILATOR [code = starting of Me dicine 23178] 09/16/2019 until 09/15/2020 Future Scheduled NOVEL 2019 1 Occurrences [facility] Col lege Test CORONAVIRUS(COVID-19), starting of Me dicine CRUZ [code = U0004] 09/16/2019 until 03/17/2020 Encounters Start End Encounter Admission Attending Care Care Encounter Source Date/Time Date/Time Type Type Clinicians Facility Department ID 2021-02-08 2021-02-[address] [facility] [id number] 09:28:41 10:39:58 [facility] 2020-12-31 2020-12-[address] [facility] [id number] 00:00:00 00:00:00 [facility] 2020-12-27 2020-12-[address] [facility] [id number] 00:00:00 00:00:00 [facility] 2020-12-26 2020-12-26 Outpatient CHEYANNE, [facility] [id number] 00:00:00 00:00:00 [facility] 2020-11-07 2020-11-07 Outpatient CHEYANNE, [facility] [id number] 00:00:00 00:00:00 [facility] 2020-10-30 2020-10-30 Outpatient JONES, [facility] [id number] [place] 09:49:50 09:53:38 [facility] 2020-10-30 2020-10-30 Outpatient JONES, [facility] [id number] [place] 00:00:00 00:00:00 [facility] 2020-10-26 2020-10-26 Outpatient JONES, [facility] [id number] [place] 13:54:57 14:45:56 [facility] 2020-10-10 2020-10-10 Outpatient [facility] [id number] [place] 00:00:00 00:00:[address] 2020-09-28 2020-09-[address] [facility] [id number] 00:00:00 00:00:00 [facility] 2020-09-26 2020-09-26 Outpatient CHEYANNE, [facility] [id number] 00:00:00 00:00:00 [facility] 2020-09-18 2020-09-18 Outpatient CHEYANNE, [facility] [id number] 00:00:00 00:00:00 [facility] 2020-08-31 2020-08-[address] [facility] [id number] 00:00:00 00:00:00 [facility] 2020-08-24 2020-08-24 Outpatient CHEYANNE, [facility] [id number] 00:00:00 00:00:00 [facility] 2020-08-24 2020-08-[address] [facility] [id number] 00:00:00 00:00:00 [facility] 2020-07-27 2020-07-27 Outpatient CHRISTINA, [facility] [id number] 00:00:00 00:00:00 [facility] 2020-07-27 2020-07-[address] [facility] [id number] 00:00:00 00:00:00 [facility] 2020-07-19 2020-07-19 Outpatient YULIA MATIAS [facility] [id number] [place] 00:00:00 00:00:00 Health 2020-06-25 2020-06-25 Outpatient CHEYANNE, [facility] [id number] 00:00:00 00:00:00 [facility] 2020-05-15 2020-05-15 Outpatient CHEYANNE, [facility] [id number] 00:00:00 00:00:00 [facility] 2020-05-10 2020-05-10 Outpatient CHEYANNE, [facility] [id number] 00:00:00 00:00:00 [facility] 2020-02-21 2020-02-21 Outpatient MARCE JAVED [facility] [id number] [facility] 00:00:00 00:00:00 ROXANA 2020-02-20 2020-02-20 [facility] [id number] [facility] 00:00:00 00:00:00 2020-02-08 2020-02-08 Outpatient CHEYANNE, [facility] [id number] 00:00:00 00:00:00 [facility] 2020-02-02 2020-02-02 Office MICHELLE Jimenez [id number] [facility] 14:13:09 16:44:45 Visit Roxana AMBULATOR [id number] College Y [id number] of [id number] [facility] tegan [facility] e 2019-12-30 2019-12-30 Outpatient CHEYANNE, [facility] [id number] 00:00:00 00:00:00 [facility] 2019-12-29 2019-12-29 Outpatient CHEYANNE, [facility] [id number] 00:00:00 00:00:00 [facility] 2019-11-18 2019-11-18 Outpatient CHEYANNE, [facility] [id number] 00:00:00 00:00:00 [facility] 2019-11-16 2019-11-16 Outpatient EL [facility] [id number] [facility] 00:00:00 00:00:00 2019-11-16 2019-11-16 Outpatient EL [facility] [id number] [facility] 00:00:00 00:00:00 2019-11-14 2019-11-14 Outpatient CHEYANNE, [facility] [id number] [facility] 00:00:00 00:00:00 [facility] 2019-11-14 2019-11-14 Outpatient EL CHEYANNE, [facility] [id number] [facility] 00:00:00 00:00:00 [facility] 2019-11-10 2019-11-10 Outpatient CHEYANNE, [facility] [id number] 00:00:00 00:00:00 [facility] 2019-10-20 2019-10-20 Outpatient CHEYANNE, [facility] [id number] 00:00:00 00:00:00 [facility] 2019-10-17 2019-10-17 Outpatient EL MICHELINE, [facility] [id number] [facility] 00:00:00 00:00:00 [facility] 2019-10-13 2019-10-13 Outpatient LUISANA, [facility] [id number] 00:00:00 00:00:00 [facility] 2019-10-13 2019-10-13 Outpatient MICHELINE, [facility] [id number] 00:00:00 00:00:00 [facility] 2019-09-16 2019-09-16 Office MICHELLE Jimenez [id number] [facility] 11:52:20 12:58:15 Visit Roxana AMBULATOR [id number] College Y [id number] Medi tegan 380 e 2019-09-08 2019-09-[address] [facility] [id number] 00:00:00 00:00:00 [facility] 2019-09-06 2019-09-[address] [facility] [id number] 00:00:00 00:00:00 [facility] 2019-09-05 2019-09-[address] [facility] [id number] 00:00:00 00:00:00 [facility] 2019-09-02 2019-09-[address] [facility] [id number] 00:00:00 00:00:00 NALI [facility] 2019-08-02 2019-08-[address] [facility] [id number] 11:32:03 11:32:03 [id number] [facility] 2019-08-01 2019-08-[address] [facility] [id number] 00:00:00 00:00:00 [id number] [facility] 2019-07-27 2019-07-[address] [facility] [id number] 00:00:00 00:00:00 [id number] [facility] 2019-07-22 2019-07-22 Outpatient [facility] [id number] [place] 00:00:00 00:00:00 [facility] 2019-06-30 2019-06-30 Outpatient [facility] [id number] [place] 00:00:00 00:00:00 [facility] 2019-06-29 2019-06-[address] [facility] [id number] 00:00:00 00:00:00 [id number] [facility] 2019-06-10 2019-06-[address] [facility] [id number] 00:00:00 00:00:00 [id number] [facility] 2018-11-01 2018-11-01 Outpatient [facility] [id number] [place] 00:00:00 00:00:00 [facility] 2018-09-16 2018-09-16 Outpatient [facility] [id number] [place] 00:00:00 00:00:00 [facility] 2018-09-14 2018-09-14 Outpatient [facility] [id number] [place] 00:00:00 00:00:00 [facility] 2018-06-22 2018-06-22 Outpatient [facility] [id number] [place] 00:00:00 00:00:00 [facility] 2018-06-21 2018-06-21 Outpatient [facility] [id number] [place] 00:00:00 00:00:00 [facility] 2018-06-17 2018-06-17 Outpatient [facility] [id number] [place] 15:27:27 15:27:27 [facility] 2018-03-18 2018-03-18 Outpatient [facility] [id number] [place] 00:00:00 00:00:00 [facility] 2018-02-26 2018-02-26 Outpatient [facility] [id number] [place] 00:00:00 00:00:00 [facility] 2018-01-13 2018-01-13 Outpatient [facility] [id number] [place] 00:00:00 00:00:00 [facility] 2018-01-13 2018-01-13 Outpatient [facility] [id number] [place] 00:00:00 00:00:00 [facility] 2018-01-12 2018-01-12 Outpatient [facility] [id number] [place] 16:06:21 16:06:21 [facility] 2017-12-24 2017-12-24 Outpatient [facility] [id number] [place] 11:27:12 11:27:12 [facility] 2017-11-19 2017-11-19 Outpatient [facility] [id number] [place] 00:00:00 00:00:00 [facility] 2017-11-18 2017-11-18 Outpatient [facility] [id number] [place] 15:10:12 15:10:12 [facility] 2017-10-01 2017-10-01 Outpatient [facility] [id number] [place] 11:30:31 11:30:31 [facility] 2017-09-21 2017-09-21 Outpatient [facility] [id number] [place] 08:03:26 08:03:26 [facility] 2017-09-18 2017-09-18 Emergency [facility] [id number] [place] 07:23:44 07:23:44 [facility] 2017-09-18 2017-09-18 Outpatient [facility] [id number] [place] 05:56:05 05:56:05 [facility] 2017-09-17 2017-09-17 Outpatient [facility] [id number] [place] 08:15:41 08:15:41 [facility] 2017-07-23 2017-07-23 Outpatient [facility] [id number] [place] 15:36:19 15:36:19 [facility] 2017-07-23 2017-07-23 Outpatient [facility] [id number] [place] 14:59:04 14:59:04 [facility] 2017-07-13 2017-07-13 Outpatient [facility] [id number] [place] 00:00:00 00:00:00 [facility] 2017-07-10 2017-07-10 Outpatient [facility] [id number] [place] 00:00:00 00:00:00 [facility] 2017-07-10 2017-07-10 Outpatient [facility] [id number] [place] 00:00:00 00:00:00 [facility] 2017-07-09 2017-07-09 Outpatient [facility] [id number] [place] 00:00:00 00:00:00 [facility] 2017-06-29 2017-06-29 Outpatient [facility] [id number] [place] 15:53:56 15:53:56 [facility] 2017-06-29 2017-06-29 Outpatient [facility] [id number] [place] 14:17:15 14:17:15 [facility] 2017-06-29 2017-06-29 Outpatient [facility] [id number] [place] 00:00:00 00:00:00 [facility] 2017-04-16 2017-04-16 Outpatient [facility] [id number] [place] 00:00:00 00:00:00 [facility] 2017-04-16 2017-04-16 Outpatient [facility] [id number] [place] 00:00:00 00:00:00 [facility] 2017-02-12 2017-02-12 Outpatient [facility] [id number] [place] 14:33:28 14:33:28 [facility] 2017-02-11 2017-02-11 Outpatient [facility] [id number] [place] 00:00:00 00:00:00 [facility] 2017-02-11 2017-02-11 Outpatient [facility] [id number] [place] 00:00:00 00:00:00 [facility] 2017-01-28 2017-01-28 Outpatient [facility] [id number] [place] 09:07:41 09:07:41 [facility] 2016-12-25 2016-12-25 Outpatient [facility] [id number] [place] 14:25:02 14:25:02 [facility] 2016-12-09 2016-12-09 Outpatient [facility] [id number] [place] 13:47:43 13:47:43 Health 2016-12-08 2016-12-08 Outpatient [facility] [id number] [place] 20:48:46 20:48:46 Health 2016-12-08 2016-12-08 Outpatient [facility] [id number] [place] 16:43:47 16:43:47 Health 2016-12-08 2016-12-08 Emergency [facility] [id number] [place] 11:02:23 11:02:23 [facility] 2016-10-17 2016-10-17 Outpatient [facility] [id number] [place] 00:00:00 00:00:00 [facility] 2016-10-10 2016-10-10 Emergency [facility] [id number] [place] 22:11:18 22:11:18 [facility] 2016-10-10 2016-10-10 Emergency [facility] [id number] [place] 16:59:51 16:59:51 [facility] 2016-10-09 2016-10-09 Emergency [facility] [id number] [place] 11:27:52 11:27:52 [facility] 2016-10-09 2016-10-09 Emergency [facility] [id number] [place] 10:59:15 10:59:15 [facility] 2016-10-09 2016-10-09 Outpatient [facility] [id number] [place] 00:00:00 00:00:00 [facility] 2016-10-04 2016-10-04 Emergency [facility] [id number] [place] 06:00:49 06:00:49 [facility] 2014-04-06 2014-04-06 Outpatient [facility] [id number] [place] 09:16:01 09:16:01 Health Results Test Description Test Time Test Comments Results Result [facility] e Comments RAD, EL[place]OW, 3 2019-11-16 Reason for FINAL REPORT PATIENT VIEWS, LEFT 11:48:00 Exam:->TENDERNE ID: [id number] SS L LATERAL TECHNIQUE: Three views EPICODYLE [...] Mcgrathort Verified Date/Time: 11/16/2019 11:48:04 Reading Location: [facility] [address] Radiology Reading Room , WRIST, LEFT, 2019-11-16 Reason for FINAL REPORT PATIENT COMPLETE (MIN 3 11:48:00 Exam:->TENDERNE ID: [id number] VIEWS) SS L DISTAL TECHNIQUE: Three views [...] Mcgrath Verified Date/Time: 11/16/2019 11:48:04 Reading Location: [facility] Radiology Reading Room , [employer] [place] 2018-02-09 Reason for FLUOROSCOPIC UNIT OR/30 [...] = 355) 25 meq/L 22-29 BUN AND [id number] 17:33:00 Test Item Value Reference Range Interpretation [...] S NOT APPLICABLE FOR DIALYSIS PATIEN TS. [id number] 17:19:00 Test Item Value Reference Range Interpretation Comments HEMOGLOBIN (BEAKER) (test code = 15.3 GM/DL 13.7-17.5 410) PLATELET [id number] 17:19:00 Test Item Value Reference Range Interpretation Comments PLATELET COUNT (BEAKER) (test 326 K/CU MM 150-450 code = 756)
== END 2021-02-03 18:48 | disposition home or self-care (01) ==
LOC: ER 15:01
DX: I11.0 Hypertensive heart disease with heart failure (principal); I50.23 Acute on chronic systolic (congestive) heart failure; E78.5 Hyperlipidemia, unspecified; E11.9 Type 2 diabetes mellitus without complications
CPT/HCPCS: 93005; 85025; 80048; 36415; 83735; 85610; 80076; 84484; 83880; 71045; 96374; 99284; J1940